=== PATIENT | female | born 1945 | race Caucasian/White ===

== ENCOUNTER → 2018-10-28 11:00 | Outpatient (CLI) | payer MEDICARE, MEDICAID, SELFPAY ==
--- NOTE | 2018-10-28 11:01 | RAD_ITS ---
STUDY: X-RAY - PELVIS AND LEFT HIP REASON FOR EXAM: Female, 73 years old. Increasing left hip and lower back pain. TECHNIQUE: 3 views of the pelvis and hip. COMPARISON: FINDINGS: _The patient is status post right hip arthroplasty in anatomic alignment. There is no plain film evidence of hardware failure or loosening. There is very severe left hip osteoarthritis. [id number] is identified. There is no acute osseous abnormality. . RAD/HIP, UNI W/ Pelvis 2-3 Views IMPRESSION: Right hip arthroplasty in anatomic alignment without plain film evidence of hardware failure or loosening. Severe left hip osteoarthritis. No plain film evidence of acute osseous abnormality. Incidental note of the moderate to severe lumbar spine degenerative changes involving the visualized inferior lumbar spine Electronically Signed: Feliberto Key MD at 15:50 EDT , Service support ,
== END ==
PROVIDERS: Family Provider Internal Medicine; PCP Internal Medicine; Referring Provider Orthopaedic Surgery; Visit Provider Orthopaedic Surgery
DX: M25.552 Pain in left hip (principal)
CPT/HCPCS: 73502

== ENCOUNTER 2018-11-27 11:30 | Outpatient (RCR) | payer MEDICARE, MEDICAID, SELFPAY ==
--- NOTE | 2018-11-01 15:06 | HP.PTEVAL_ITS ---
Patient's Visit Information VANNA MCFADDEN is a 73 year old F referred to Physical Therapy by Alcides Gayle DO with a diagnosis of LEFT HIP OSTEOARTHRITIS. Date of Evaluation: 11/01/18 Physical Therapist: Nathan Guzman, PT, Cert MDT, OCS - Visit Plan Frequency: 2x /Week Duration: 4 Weeks Plan: PATIENT PLANS TO HAVE THR LEFT IN JANUARY. AQUATIC PT FOR ROM/STRENGTHENING HIP ,GAIT - Subjective Findings: This 73 y/o female presnets to physical therapy with left hip osteoarthritis. Patient has left hip pain for 3 years progressivly became worse. Patient has been seeing pain management for injections in hip and back. Pain became progressively worse with activity and limits with activity and needs FWW. Pain located in groin and lateral hip. Pain affects sleeping . Patient has difficulty with staips one step ,limited walking/standing couple minutes . Symptoms affect QOL and function. Patient seen Dr Hickman recommended left THR will been January. Patient had x-rays showed severe OA. VOACTION: retired. SOCAIL: - Pain Left Hip Pain Intensity (Out of 10): 9 Pain Intensity Range: 10 - Objective POSTURE: mild foward posture. NEURO: intact. GAIT: ambulates with antalgic gait poor stance time with fww. BALANCE: fair+. AROM: supine knee flexion 0-95 degrees ,hip flexion 70 degrees ,hip abd 15 degrees. STAIRS: one step at a time with rail - Special Tests L Hip Scour: Positive - Goals Goal 1:: Patient to be Independant with Aquatic PT Goal Time Frame: 4-6 Weeks Goal 2:: Patient to decrease pain by 30% to improve function. Goal Time Frame: 4-6 Weeks Goal 3:: Patient to improve AROM hip by 5-10 degrees to improve gait Goal Time Frame: 4-6 Weeks Goal 4:: Patient to increase strength by 1/2 grade to improve function Goal Time Frame: 4-6 Weeks Goal 5:: Patint to be seen for PT for gait with less antalgic gait by 30% Goal Time Frame: 4-6 Weeks - Rehabilitation Potential Physical Therapy Diagnosis: This patient has severe OA left hip with pain,poor ROM ,strength,imapirs ability to walk needs FWW. Rehabilitation Potential: Good - Anticipated Interventions Patient/Client Instruction: Educate patient on: Condition For the Purpose of:: To decrease pain, To increase ROM, To improve muscle performance and motor function, To increase tolerance to activity/c ondition/position, To improve ability of physical actions for home/community/work/leisure, To improve gait and locomotor functions, To improve health of tissue, To decrease soft tissue restriction, To increase flexibility/ROM Therapeutic Exercise to Include: Power training, In an aquatic setting, Passive ROM, Active ROM Comment: BLE For the Purpose of:: To decrease pain, To increase ROM, To improve muscle performance and motor function, To increase tolerance to activity/condition/position, To improve ability of physical actions for home/community/work/leisure, To improve health of tissue, To decrease soft tissue restriction, To increase flexibility/ROM, To improve balance, To improve ability to perform tasks related to life management Thank you for the opportunity to evaluate your patient. For Medicare and Medicare HMO plans, please review the plan of care and approve it. It will need to be FAXED BACK to us at [phone] for Medicare purposes. For Medicare only, by signing this I certify the plan of care. Please let me know if there are questions or concerns regarding this plan of care. Physician Signature: Date:
--- NOTE | 2018-11-27 11:52 | HP.PTDCSUM ---
HP - PT D/C Summary It has been my pleasure to treat VANNA MCFADDEN under orders from Alcides Gayle DO, for the diagnosis of LEFT HIP OSTEOARTHRITIS for a total of 7 visit(s). Discharge Date: 11/27/18 Please see the following information for a summary of their discharge status. - Subjective Subjective: Water exercises made my back worse. Plan for for hip surgery left hip January 2019 - Pain Left Hip Pain Intensity (Out of 10): 2 Lumbar Spine Pain Intensity (Out of 10): 8 - Overall Improvement % Improvement: 25 - Objective Objective/Function: POSTURE: mild foward posture. GAIT: antalgic gait with fww decrease stance left side. MMT: quads 3+/5,hip flexion 3+/5,abd 3-/5.hams 4-/5. BALANCE: fair + with fww - Goals Goal 1:: Patient to be Independant with Aquatic PT Goal Progress: Progressing Goal 2:: Patient to decrease pain by 30% to improve function. Goal Progress: Progressing Goal 3:: Patient to improve AROM hip by 5-10 degrees to improve gait Goal Progress: Progressing Goal 4:: Patient to increase strength by 1/2 grade to improve function Goal Progress: Progressing Goal 5:: Patint to be seen for PT for gait with less antalgic gait by 30% Goal Progress: Progressing - Plan Plan: d/c waiing for THR - D/C Information Discharge Comments: PLAN MATT SURGERY THR If there are questions or concerns regarding this patient's physical therapy, please feel free to call me at [phone]. Thank you for the referral of this patient. Sincerely, Nathan Guzman, PT, Cert MDT, OCS
== END 2018-11-27 19:00 | disposition home or self-care (01) ==
LOC: PT 11:30
PROVIDERS: Family Provider Internal Medicine; PCP Internal Medicine; Referring Provider Orthopaedic Surgery; Visit Provider Orthopaedic Surgery
DX: M16.12 Unilateral primary osteoarthritis, left hip (principal)
CPT/HCPCS: 97113; 97162; 97530

== ENCOUNTER → 2019-01-06 13:01 | Outpatient (CLI) | payer MEDICARE, MEDICAID, SELFPAY ==
--- NOTE | 2019-01-06 13:04 | RAD_ITS ---
STUDY: X-RAY - PELVIS AND LEFT HIP REASON FOR EXAM: Female, 73 years old. Chronic pain. TECHNIQUE: 3 views of the pelvis and hip. COMPARISON: AP pelvis and 2 additional views of the left hip October 28, 2018. FINDINGS: There is a non-specific bowel gas pattern. There are stable calcified phleboliths in the pelvic soft tissues. Degenerative changes again seen in the visualized lower lumbar spine. Normal bilateral iliac wings, sacroiliac joints and visualized sacrum. Normal bilateral superior and inferior pubic rami. Normal pubic symphysis. Normal bilateral ischial tuberosities. Prior right total hip arthroplasty with an indwelling metal bipolar prosthesis again noted. There are stable severe osteoarthritic changes of the femoral head with marginal osteophyte formation. Rounded lucencies in the superior left femoral head suggests sites of subarticular cystic degenerative change. There is stable osteoarthritic spur formation of the acetabular rim. There is stable severe articular joint space narrowing of the hip. There is no demonstrated acute fracture. RAD/Hip 1 view with Pelvis IMPRESSION: 1. Stable severe osteoarthritic degenerative changes of the left hip. 2. Prior right total hip arthroplasty. 3. Stable degenerative changes in the lower lumbar spine. Electronically Signed: Evangelista Mcknight MD at 13:36 EDT , Service support ,
== END ==
PROVIDERS: Family Provider Internal Medicine; PCP Internal Medicine; Referring Provider Orthopaedic Surgery; Visit Provider Orthopaedic Surgery
DX: M16.12 Unilateral primary osteoarthritis, left hip (principal)
CPT/HCPCS: 73501

== ENCOUNTER 2019-01-22 08:01 | Inpatient (IN) | payer MEDICARE, MEDICAID, SELFPAY ==
--- NOTE | 2019-01-06 08:41 | HP_ITS ---
Intake Vital Signs 01/06/19 Body Mass Index (BMI) 27.4 Intake Visit Reasons: LEFT HIP Accompanied by: Is patient in pain?: Yes Allergies No Known Allergies Allergy (Verified 10/28/18 11:19) Medications atenolol 25 mg tablet PO 90 Days #90 tab 10/28/18 [History Confirmed 01/06/19] celecoxib 200 mg capsule PO 30 Days #30 cap 10/28/18 [History Confirmed 10/28/18] gabapentin 100 mg capsule PO 90 Days #450 cap 10/28/18 [History Confirmed 10/28/18] hydrocodone 5 mg-acetaminophen 325 mg tablet PO 15 Days #30 tab 10/28/18 [History Confirmed 01/06/19] losartan 100 mg-hydrochlorothiazide 25 mg tablet PO 90 Days #90 tab 10/28/18 [History Confirmed 01/06/19] omeprazole 20 mg capsule,delayed release PO 90 Days #180 cap 10/28/18 [History Confirmed 01/06/19] atorvastatin 20 mg tablet PO #90 tab 01/06/19 [History Confirmed 01/06/19] gabapentin 300 mg capsule PO #60 cap 01/06/19 [History Confirmed 01/06/19] HPI LEFT HIP: Surgical H&P: Yes Details: Parts of this documentation were recorded by a scribe, this documentation accurately reflects the service provided and the decisions made by me, Alcides Gayle, 01/06/19 0813. VANNA MCFADDEN is a 73 year old F here today for left hip pain and discuss surgery. She is ambulating with an antalgic gait and using a walker. She did just have left side nerve ablation with limited results so far of radicular pain. Ortho Exam Left Hip HIP: good ankle and knee rom, no calf Left Hip Skin/Wound: No Ecchymosis Hip: Absent eccymosis internal rotation @90 degree flexion: 2 (significant pain) external rotation @90 degree extension: 30 (severe pain) HIP: catching in groin with rom, Assessment & Plan Problems 1. Primary osteoarthritis of left hip M16.12 Plan X-rays were reviewed. There is severe OA noted in the left hip and DJD of the lumbar spine and that though she should get pain relief with RAJWINDER but there may be residual referred pain from her low back issues. Reviewed procedure and material with a model as well. Will control her pain medications for postoperative period. Risks, benefits and alternatives of surgery reviewed including but not limited to bleeding, infection, nerve, artery and/or tissue damage, fracture, VTE, leg length discrepancy, dislocation, need for hip precautions, continued pain and expected post-operative course. Follow up two weeks post op or sooner if pain, swelling, numbness or associated symptoms, or concerns develop. All questions answered. Patient in agreement of plan. Orders Orders: Hip 1 view with Pelvis Today M16.12 Coding Level of Care Code Off vis,est,level 3 Diagnoses Primary osteoarthritis of left hip M16.12 ??Osteoarthritis type: primary 01/06/19 1347 <Electronically signed by Alcides guzman DO> Date _ Alcides Gayle DO
[2019-01-06 13:45] VITALS: BMI 27.4
[2019-01-17 13:14] VITALS: BP 102/61; PULSE 82; RESP 17; TEMP 36.9; O2SAT 97; BMI 27.6
--- NOTE | 2019-01-17 13:42 | SDCEKG_ITS ---
Test Reason : Blood Pressure : / mmHG Vent. Rate : 080 BPM Atrial Rate : 080 BPM P-R Int : 172 ms QRS Dur : 086 ms QT Int : 366 ms P-R-T Axes : 018 030 036 degrees QTc Int : 422 ms Normal sinus rhythm Normal ECG Confirmed by RAE LINDQUIST, EFRAIN ([id number]), material expeditor ADELINE AYERS ([id number]) on 01/21/2019 2:13:37 PM Referred By: Alcides Gayle Confirmed By:EFRAIN MCBRIDE MD
[2019-01-17 14:27] LABS: Hematocrit 42.8 % (37-47); Hemoglobin 14.7 g/dl (12.0-15.0); Mean Corp Hgb Conc 34.3 g/gl (32-36); Mean Corpuscular Hgb 28.9 pg (27.0-32.0); Mean Corpuscular Volume 84.1 fL (81-99); Mean Platelet Vol. 12.6 fl (6.2-12.0); Platelet Count 147 K/mm3 (150-450); RBC Distribution Width CV 13.3 % (11.6-14.6); RBC Distribution Width SD 40.5 fl (35.1-43.9); Red Blood Count 5.09 M/mm3 (4.2-5.4); White Blood Count 9.9 K/mm3 (4.4-11.0)
[2019-01-17 14:30] LABS: Anion Gap 5 (5-15); BUN 20 mg/dL (7-18); BUN/Creat Ratio 21.7 RATIO (10-20); Chloride 100 mmol/L (98-107); Creatinine, Serum 0.92 mg/dL (0.55-1.02); EST Glomerular Filtration Rate 64 mL/min (>60); Est Glom Filt Rate - Afr Amer 77 mL/min (>60); Estimated Creatinine Clearance 47.73 ml/min; Glucose 156 mg/dL (74-106); Potassium 3.7 mmol/L (3.5-5.1); Scan Indicated on CBC? Y/N NO; Sodium Level 134 mmol/L (136-145)
[2019-01-21] VITALS (13 sets, daily range): BP systolic 95–129; BP diastolic 63–90; PULSE 55–72; RESP 16–18; TEMP 35.9–36.8; O2SAT 93–100; BMI 27.6
[2019-01-21] MEDS: Acetaminophen 500 MG Tablet 1000 MG PO ×2 (09:54→23:28)
[2019-01-21] MEDS: Celecoxib 200 MG Capsule 400 MG PO (09:54)
[2019-01-21] MEDS: Gabapentin 600 MG Tablet PO (09:55)
[2019-01-21] MEDS: Scopolamine 1mg/72hr Patch 1 PATCH TRANSDERM. (09:56)
[2019-01-21] MEDS: Magnesium Sulfate 4gm/100mL 4 GM/100 ML IV.SOLN. IV (09:59)
[2019-01-21] MEDS: Lactated Ringers 1,000 ML 100 ML IV ×2 (09:59→18:27)
[2019-01-21] MEDS: oxyCODONE HCl Cr 10 MG Tablet PO (10:13)
[2019-01-21 10:16] LABS: Bedside Glucose 103 mg/dL (70-110)
[2019-01-21] MEDS: Cefazolin 2 GM in 0.9% Normal Saline 100 ML IV ×2 (11:40→18:27)
[2019-01-21] MEDS: Bupiv/Epi 0.5% Mpf 30 ML Vial (13:35)
--- NOTE | 2019-01-21 14:22 | RAD_ITS ---
STUDY: X-RAY - PELVIS AND LEFT HIP REASON FOR EXAM: Female, 73 years old. Left Total hip TECHNIQUE: 2 views of the pelvis and hip. COMPARISON: None. FINDINGS: There is a non-specific bowel gas pattern. There are atherosclerotic vascular calcifications of the pelvic arteries. Normal bilateral iliac wings, sacroiliac joints and visualized sacrum. Normal bilateral superior and inferior pubic rami. Normal pubic symphysis. Normal bilateral ischial tuberosities. There is a right hip arthroplasty demonstrated in anatomic position and alignment. There is a left-sided hip arthroplasty secured with an acetabular screw. There are overlying skin sinan and subcutaneous gas expected with recent surgery. RAD/Hip Min 2 Views (Portable) IMPRESSION: Status post new left hip arthroplasty in anatomic position and alignment with postoperative change. Right hip arthroplasty. Electronically Signed: Kacey Alba MD at 14:57 EDT Tel , Service support ,
--- NOTE | 2019-01-21 14:55 | PCM.OPRPT ---
Report of Operation Date of Procedure: 01/21/19 Description of Surgical Findings:: Preoperative diagnosis: DJD [Left] hip Postoperative diagnosis: Same Procedure: [Left] total hip arthroplasty Implants: Cadillac Accolade II stem size 5 [132] degree neck angle [0] neck length 56 mm cup with [40]mm cancellous screw [36]mm [ceramic] head Anesthesia:[Spinal] EBL: 300 cc Complications: None Condition: Stable to PACU Indication for procedure: his deshaun casillas is a 73-year-old female who has severe hip arthritis with leg length shortening had long-standing arthrosis of the hip who has failed conservative treatment and wished to undergo total hip arthroplasty. We did discuss operative versus nonoperative intervention including risks of bleeding, infection , nerve artery tissue damage, need for further surgery, fracture, leg length discrepancy dislocation blood clot and need for postoperative physical therapy and postoperative expectations. An informed consent was signed. Procedure: Patient was met in the preoperative holding area once again the operative extremity was identified by both patient and physician and was marked. Patient was met by anesthesia [and a spinal was placed]. [A Ratliff catheter was placed ]patient was then positioned in the lateral decubitus position on a well-padded pegboard with an axillary roll. All bony prominences were checked and padded. The patient was prepped and draped in the usual sterile fashion. A timeout was called to ensure the proper patient procedure and extremity were being contemplated. Anatomic landmarks were palpated and marked for a standard posterior lateral approach. A timeout was called to ensure the proper patient procedure and extremity were being contemplated. A 10 blade scalpel was used to make a posterior incision through the skin and subcutaneous tissue. In retractors were used and electrocautery was used to maintain meticulous hemostasis and dissect full-thickness flaps until the gluteal fascia was reached. The gluteal fascia was incised in line with the gluteal fibers. The bursal tissue was then freed from the underside and a Charnley retractor was placed. The fatpad was elevated off of the external rotators with electrocautery and the external rotators were dissected off of the greater trochanter including the piriformis and were tagged with #1 Ethibond for later repair. The joint capsule opened with posterior trapdoor technique. The hip was surgically dislocated. Hohmann was placed around the lesser trochanter. A neck cutting guide was used to crissy the neck with a Bovie and an oscillating saw was used complete the femoral neck cut. The femoral head was then removed and sized. We then turned our attention to the acetabulum. A Bovie was used to make a perforation in the anterior joint capsule and a pointed Hohmann was placed this was repeated in the 6 o'clock position in a wide point at home and was placed there. With a long handled knife the labral and pulmonary tissue were removed. We then began sequential reaming until the appropriate size was achieved. We then fit the acetabular shell in place with good ability and proceeded to place a posterior superior screw by drilling first measuring and inserting the screw. We then inserted a trial liner. And turned our attention back to the femur at this point a femoral elevator was used. As well as a pointed wide Hohmann around the lesser trochanter and a Hohmann to help retract the gluteus medius. A box chisel was used to remove excess lateral neck followed by a canal finder and a lateralizing reamer. This was followed by sequential broaches attention was made of the version within the canal. Once the final broach was seated we then trialed reduced the hip it was determined that a [132] degree neck angle with a [0] offset was the appropriate size. We then checked ability with shuck testing as well as flexion and terminal rotation then proceeded with hip extension and checked leg lengths at the knees and heels. At this point trials were removed. A posterior lipped liner was inserted to the cup. The femoral stem was inserted. We re-trialed and then proceeded to impact the femoral head onto the Andrey taper. We then surgically reduce the hip check stability again and leg lengths and were satisfied. Betadine rinse was allowed to sit for 5 minutes while everyone changed their gloves. Thorough irrigation was performed. Followed by closure of the external rotators with #2 FiberWire followed by closure of gluteal fascia with #1 Ethibond. 0 Vicryl fat stitches and 2-0 Vicryl subcutaneous stitches and sinan in the skin. Dressing was applied in the form of Xeroform 4 x 4 ABD Ioband and an abduction pillow was placed. Patient tolerated the procedure well there was no intraoperative complications all counts were correct and the patient was brought back to the PACU in stable condition
[2019-01-21] MEDS: oxyCODONE 5 MG Tablet PO (18:26)
[2019-01-21] MEDS: Atorvastatin Calcium 20 MG Tablet PO (22:21)
[2019-01-21] MEDS: Gabapentin 300 MG Capsule PO (22:21)
[2019-01-21] MEDS: APIXABAN 2.5 MG TABLET PO (22:21)
[2019-01-21] MEDS: Senna/Docusate Sodium 1 Tablet 2 TABLET PO (22:21)
[2019-01-21] MEDS: 0.9% NaCl Peripheral Flush Adult/Peds IV (22:28)
[2019-01-21] MEDS: Ketorolac 15 MG/ML Vial IV (22:28)
[2019-01-22] VITALS (11 sets, daily range): BP systolic 95–127; BP diastolic 49–63; PULSE 65–94; RESP 16–18; TEMP 36.6–37.6; O2SAT 88–100
[2019-01-22] MEDS: oxyCODONE 5 MG Tablet PO ×5 (00:50→23:35)
[2019-01-22] MEDS: Cefazolin 2 GM in 0.9% Normal Saline 100 ML IV (03:28)
[2019-01-22] MEDS: Lactated Ringers 1,000 ML 100 ML IV (03:31)
[2019-01-22 05:31] LABS: Hematocrit 30.5 % (37-47); Hemoglobin 10.4 g/dL (12.0-15.0); Mean Corp Hgb Conc 34.1 g/dL (32-36); Mean Corpuscular Hgb 29.7 pg (27.0-32.0); Mean Corpuscular Volume 87.1 fL (81-99); Mean Platelet Vol. 12.1 fl (6.2-12.0); Platelet Count 112 K/mm3 (150-450); RBC Distribution Width CV 13.2 % (11.6-14.6); RBC Distribution Width SD 42.3 fl (35.1-43.9); White Blood Count 7.6 K/mm3 (4.4-11.0)
[2019-01-22 05:54] LABS: Anion Gap 8 (5-15); BUN 13 mg/dL (7-18); BUN/Creat Ratio 14.2 RATIO (10-20); Calcium,Total 7.6 mg/dL (8.5-10.1); Chloride 98 mmol/L (98-107); Creatinine, Serum 0.91 mg/dL (0.55-1.02); EST Glomerular Filtration Rate 64 mL/min (>60); Est Glom Filt Rate - Afr Amer 78 mL/min (>60); Estimated Creatinine Clearance 48.25 ml/min; Glucose 94 mg/dL (74-106); Potassium 3.8 mmol/L (3.5-5.1); Sodium Level 132 mmol/L (136-145)
[2019-01-22] MEDS: 0.9% NaCl Peripheral Flush Adult/Peds IV (06:33)
[2019-01-22] MEDS: Acetaminophen 500 MG Tablet 1000 MG PO ×3 (06:52→22:02)
--- NOTE | 2019-01-22 07:26 | PCM.PN.ORT ---
Subjective: Complain of pain but not out of control the left hip fevers chills nausea vomiting shortness of breath chest pain - Physical Exam General: Alert, Oriented x3, Cooperative, No apparent distress Extremities: - - Tip dressing clean dry and intact compartment soft neurovascular intact HL tibialis anterior gastrocsoleus intact sensation light touch palpable pedal pulses Vital Signs Temp Pulse Resp BP Pulse Ox 98 F 72 18 107/62 93 01/22/19 03:27 01/22/19 03:27 01/22/19 03:27 01/22/19 03:27 01/22/19 05:09 Oxygen Flow Rate (L/min) 1 Oxygen Delivery Method Nasal Cannula Weight: 161 lb 2.526 oz Body Mass Index (BMI) 27.6 Intake and Output for Last 24 Hours 01/20/19 01/21/19 01/22/19 23:59 23:59 23:59 Intake Total 2843 / 3980 2170 / 2170 Output Total 290 / 515 725 / 725 Balance 2553 / 3465 1445 / 1445 Laboratory Tests Past 24 Hrs 01/22/19 01/22/19 05:08 05:08 WBC 7.6 RBC 3.50 L Hgb 10.4 L Hct 30.5 L MCV 87.1 MCH 29.7 MCHC 34.1 RDW Std Deviation 42.3 RDW Coeff of Bela 13.2 Plt Count 112 L MPV 12.1 H Sodium 132 L Potassium 3.8 Chloride 98 Carbon Dioxide 26.0 Anion Gap 8 BUN 13 Creatinine 0.91 Estim Creat Clear Calc 48.25 Est GFR (MDRD) Af Amer 78 Est GFR (MDRD) Non-Af 64 BUN/Creatinine Ratio 14.2 Glucose 94 Calcium 7.6 L POC Glucose 01/21/19 09:36 POC Glucose 103 Medical Necessity - Tobacco Use Smoking Status: Current every day smoker Tobacco Use: Cigarettes Assessment/Plan POD #1 left total hip arthroplasty Request 2.5 mg twice daily Seem to be changed by nursing tomorrow morning and daily cleaned with Betadine Shower postop day #3 The planning tomorrow with home health care
[2019-01-22] MEDS: hydroCHLOROthiazide 12.5mg 12.5 MG PO (08:08)
[2019-01-22] MEDS: BENZOCAINE/MENTHOL 1 LOZENGE MUCOUS MEM (08:08)
[2019-01-22] MEDS: Senna/Docusate Sodium 1 Tablet 2 TABLET PO ×2 (08:08→22:02)
[2019-01-22] MEDS: APIXABAN 2.5 MG TABLET PO ×2 (08:08→22:03)
[2019-01-22] MEDS: Pantoprazole Sodium 20 MG Tablet PO (08:08)
[2019-01-22] MEDS: Gabapentin 300 MG Capsule PO ×2 (08:08→22:03)
--- NOTE | 2019-01-22 10:45 | CASEMGMT ---
SILVIA CUNNINGHAM Face to Face with patient for initial transition planning/care coordination assessment. RN CM introduced self and role at [facility]. Patient lying in bed, alert and oriented. Patient willing to participate in assessment and is able to answer all questions appropriately. Care providers, pharmacy, and demographics verified. Patient wishes to discharge home with HHC for therapy, patient prefers [facility]. Patient states she has no further needs or concerns at this time. CM to follow for discharge planning needs that may arise. PCP: Alonso Specialists: Jerardo pain specialist [facility] Prescription Benefit: yes Living Will/HPOA: None, declined information LNOK: , children Living Arrangements: Patient lives with in 2 story house with 12 steps and railing to enter the home. Patient independent prior to surgery. Transportation: Family DME/HHC: Patietn states she has walker, raised toilet, and shower chair at home. Patient prefers HHC for therapy, then transition to outpatient therapy. Patient prefers [facility]. Disposition Plan: Patient to discharge home with HHC, family support, and follow-up plans in place. Lucinda BOWSER, RN, CM
--- NOTE | 2019-01-22 14:20 | CASEMGMT ---
SILVIA CUNNINGHAM sent referral to [facility] for therapy. [facility] is able to accept the patient. SILVIA CUNNINGHAM will continue to follow this patient and plan for a safe discharge.
[2019-01-22] MEDS: Atorvastatin Calcium 20 MG Tablet PO (22:03)
[2019-01-23 01:45] VITALS: BP 117/69; PULSE 77; RESP 16; TEMP 37; O2SAT 96
[2019-01-23] MEDS: Acetaminophen 500 MG Tablet 1000 MG PO (05:08)
[2019-01-23 06:16] LABS: Hematocrit 36.4 % (37-47); Hemoglobin 12.2 g/dL (12.0-15.0); Mean Corp Hgb Conc 33.5 g/dL (32-36); Mean Corpuscular Hgb 28.8 pg (27.0-32.0); Mean Corpuscular Volume 86.1 fL (81-99); Mean Platelet Vol. 13.5 fl (6.2-12.0); POSITIVE COUNT YES; Platelet Count 156 K/mm3 (150-450); RBC Distribution Width CV 12.9 % (11.6-14.6); Red Blood Count 4.23 M/mm3 (4.2-5.4); White Blood Count 12.3 K/mm3 (4.4-11.0)
[2019-01-23 06:25] LABS: Scan Indicated on CBC? Y/N YES- FLAGS NOTED
[2019-01-23 06:56] LABS: POSITIVE DIFFERENTIAL NO; POSITIVE MORPHOLOGY NO
[2019-01-23 06:57] LABS: Differential Comment SCANNED
[2019-01-23 07:45] VITALS: BP 103/59; PULSE 88; RESP 18; TEMP 36.9; O2SAT 93
--- NOTE | 2019-01-23 08:05 | DCINST_ITS ---
Discharge Diet: No Restrictions Weight Bearing Status: Weight bearing as tolerated Call your doctor if you observe: Shortness of breath, Chest pain Suture Line Care: Avoid Pulling/Pushing Additional Instructions: Begin daily showering warm water antibacterial soap postop day #3 and then daily. Change dressing daily until no drainage for 2 consecutive days then may leave open to air. Follow hip precautions as reviewed by hospital physical therapist. Call with any concerns Allergies/Adverse Reactions: Allergies No Known Allergies Allergy (Verified 01/21/19 09:24) Medications to take at Discharge atenolol 25 mg tablet 25 mg PO DAILY 90 Days #90 tab 10/28/18 celecoxib 200 mg capsule 200 mg PO DINNER 30 Days #30 cap 10/28/18 hydrocodone 5 mg-acetaminophen 325 mg tablet 1 tab PO BID PRN 15 Days #30 tab 10/28/18 omeprazole 20 mg capsule,delayed release 20 mg PO DAILY 90 Days #180 cap 10/28/18 atorvastatin 20 mg tablet 20 mg PO DAILY #90 tab 01/06/19 gabapentin 300 mg capsule 300 mg PO BID #60 cap 01/06/19 Calcium Carbonate/Vitamin D3 [Calcium 600-Vit D3 200 Tablet] 1 ea PO DAILY 01/17/19 Hydrochlorothiazide [Hctz] 12.5 mg PO DAILY 01/17/19 Losartan Potassium [Cozaar] 100 mg PO DAILY 01/17/19 Primary Care Physician: Melanie Gupta MD [Primary Care Provider] - Test Results: Test results from this visit will be discussed in further detail at your follow- up appointment, if applicable. Please Follow Up With: Alcides Gayle DO When: 2wk
--- NOTE | 2019-01-23 08:11 | PCM.DC.SUM ---
Hospital Course and Treatment Summary of Care Provided: The patient is a 73 year old F this is a 73-year-old female patient with long-standing history of severe left hip DJD who is failed conservative treatment. She underwent left total hip arthroplasty day of admission. She did receive pre-and postoperative antibiotics which were discontinued within 23 hours postoperatively. She did receive spinal anesthesia and postoperatively her pain was controlled with both IV and p.o. pain medication. She did receive 2 g of tranexamic acid. Her hemoglobin and hematocrit were monitored postoperatively as well as her vital signs and she did not require any blood transfusion she did have a juarez catheter placed which was removed in the morning of POD #1 . Dressing was changed on the morning of postop day #2 without any concerning signs. He did have a superficial ulceration on her back which was cleaned and dressed for her she will continue to clean this daily with her showers. she was started on Eliquis 2.5 mg twice daily postop day #1 for which she will continue for 3 weeks post hospital discharge . She was seen by physical therapy was ambulating the halls well she will be discharged home with home health residential physical therapy will follow-up in the office in 2 weeks. No intrahospital complications. - Physical Exam General: Alert, Oriented x3, Cooperative Extremities: - - Incision looks good no signs of infection compartment soft neurovascular intact there is a small 3 cm superficial ulceration on her backside which was cleaned and redressed Vital Signs Temp Pulse Resp BP Pulse Ox 98.6 F 77 16 117/69 96 01/23/19 01:45 01/23/19 01:45 01/23/19 01:45 01/23/19 01:45 01/23/19 01:45 Oxygen Flow Rate (L/min) 2 Oxygen Delivery Method Nasal Cannula Weight: 161 lb 2.526 oz Body Mass Index (BMI) 27.6 Intake and Output for Last 24 Hours 01/21/19 01/22/19 01/23/19 23:59 23:59 23:59 Intake Total 2843 / 3980 4930 / 4930 200 / 200 Output Total 290 / 515 2325 / 2325 1400 / 1400 Balance 2553 / 3465 2605 / 2605 -1200 / -1200 Laboratory Tests Past 24 Hrs 01/23/19 05:18 WBC 12.3 H RBC 4.23 Hgb 12.2 Hct 36.4 L MCV 86.1 MCH 28.8 MCHC 33.5 RDW Std Deviation 40.0 RDW Coeff of Bela 12.9 Plt Count 156 MPV 13.5 H Differential Comment SCANNED Discharge Diet: No Restrictions Weight Bearing Status: Weight bearing as tolerated Call your doctor if you observe: Shortness of breath, Chest pain Suture Line Care: Avoid Pulling/Pushing Home Medications: Medications to take at Discharge atenolol 25 mg tablet 25 mg PO DAILY 90 Days #90 tab 10/28/18 celecoxib 200 mg capsule 200 mg PO DINNER 30 Days #30 cap 10/28/18 omeprazole 20 mg capsule,delayed release 20 mg PO DAILY 90 Days #180 cap 10/28/18 atorvastatin 20 mg tablet 20 mg PO DAILY #90 tab 01/06/19 gabapentin 300 mg capsule 300 mg PO BID #60 cap 01/06/19 Calcium Carbonate/Vitamin D3 [Calcium 600-Vit D3 200 Tablet] 1 ea PO DAILY 01/17/19 Hydrochlorothiazide [Hctz] 12.5 mg PO DAILY 01/17/19 Losartan Potassium [Cozaar] 100 mg PO DAILY 01/17/19 Acetaminophen [Tylenol] 1,000 mg PO Q8 #100 tab 01/23/19 Apixaban [Eliquis] 2.5 mg PO BID 21 Days #42 tab 01/23/19 Oxycodone [Oxyir] 5 - 10 mg PO Q4H PRN PRN 7 Days #60 tablet 01/23/19 Following Prescrptions Were Given to Patient: Apixaban [Eliquis] 2.5 mg PO BID 21 Days #42 tab [facility]: [id number] Oxycodone [Oxyir] 5 - 10 mg PO Q4H PRN PRN 7 Days #60 tablet PRN Reason: Mod-Severe Pain (4-04/17) Transmission Status: [id number] Acetaminophen [Tylenol] 1,000 mg PO Q8 #100 tab Transmission Status: [id number] Primary Care Physician: Melanie Gupta MD [Primary Care Provider] - Please Follow Up With: Alcides Gayle DO When: 2wk Additional Instructions: Begin daily showering warm water antibacterial soap postop day #3 and then daily. Change dressing daily until no drainage for 2 consecutive days then may leave open to air. Follow hip precautions as reviewed by hospital physical therapist. Call with any concerns Medical Necessity - Tobacco Use Smoking Status: Current every day smoker Tobacco Use: Cigarettes Meaningful Use Info Meaningful Use Diagnoses (Choose all that apply): None applicable
[2019-01-23] MEDS: Gabapentin 300 MG Capsule PO (08:15)
[2019-01-23] MEDS: APIXABAN 2.5 MG TABLET PO (08:15)
[2019-01-23] MEDS: Senna/Docusate Sodium 1 Tablet 2 TABLET PO (08:15)
[2019-01-23] MEDS: hydroCHLOROthiazide 12.5mg 12.5 MG PO (08:15)
[2019-01-23] MEDS: Pantoprazole Sodium 20 MG Tablet PO (08:18)
[2019-01-23] MEDS: oxyCODONE 5 MG Tablet PO (09:29)
--- NOTE | 2019-01-23 12:30 | CASEMGMT ---
[place] NOTE: Call placed to [facility] and they were made aware pt has been discharged home today. They stated their fax machine is not currently working and gave this RN OCTAVIO a different number to fax this information to than what was originally provided. Discharge summary and instructions, and [facility] order for PT/OT eval and treat faxed to [facility] @ Deanna BOWSER RN, CM
== END 2019-01-23 10:38 | disposition home or self-care (01) | DRG 470 ==
LOC: SDC 08:23
PROVIDERS: Anesthesiology; Admitting Provider Orthopaedic Surgery; Family Provider Internal Medicine; PCP Internal Medicine; Referring Provider Orthopaedic Surgery; Visit Provider Orthopaedic Surgery
PROC: 0SRB0JZ Replacement of Left Hip Joint with Synthetic Substitute, Open Approach (ICD-10-PCS; CPT 27130; principal; 2019-01-21 10:55)
DX: M16.12 Unilateral primary osteoarthritis, left hip (principal)
CPT/HCPCS: 36415; 73502; 80048; 82962; 85027; 87081; 93005; 97110; 97161; 97166; 97530; C1713; C1776; J7120; A4216; J2405

== ENCOUNTER → 2019-03-03 13:43 | Outpatient (CLI) | payer MEDICARE, MEDICAID, SELFPAY ==
[2019-03-03 08:12] VITALS: BMI 27.6
--- NOTE | 2019-03-03 13:44 | RAD_ITS ---
STUDY: X-RAY - PELVIS AND LEFT HIP REASON FOR EXAM: Female, 73 years old. Postop TECHNIQUE: 3 views of the pelvis and hip. COMPARISON: January 21, 2019 FINDINGS: There is a non-specific bowel gas pattern. Normal visualized soft tissue structures. Normal bilateral iliac wings, sacroiliac joints and visualized sacrum. Normal bilateral superior and inferior pubic rami. Normal pubic symphysis. Normal bilateral ischial tuberosities. Bilateral hip prostheses are noted in anatomic alignment and position. RAD/HIP, UNI W/ Pelvis 2-3 Views IMPRESSION: Stable appearance to bilateral hip prostheses Electronically Signed: Manuel Fofana MD at 17:27 EDT , Service support ,
== END ==
PROVIDERS: Family Provider Internal Medicine; PCP Internal Medicine; Referring Provider Orthopaedic Surgery; Visit Provider Orthopaedic Surgery
DX: Z96.642 Presence of left artificial hip joint (principal)
CPT/HCPCS: 73502

== ENCOUNTER → 2019-07-07 12:59 | Outpatient (CLI) | payer MEDICARE, MEDICAID, SELFPAY ==
[2019-07-07 12:55] VITALS: BMI 27.6
--- NOTE | 2019-07-07 13:00 | RAD_ITS ---
STUDY: X-RAY - PELVIS AND LEFT HIP REASON FOR EXAM: Female, 73 years old. RECENT PAIN. NO INJURY TECHNIQUE: 3 views of the pelvis and hip. COMPARISON: 03/03/2019 FINDINGS: There is a non-specific bowel gas pattern. Normal visualized soft tissue structures. Normal bilateral iliac wings, sacroiliac joints and visualized sacrum. Normal bilateral superior and inferior pubic rami. Normal pubic symphysis. Normal bilateral ischial tuberosities. Status post total hip arthroplasty. The prosthesis appears located. No ostial lysis to suggest loosening. RAD/HIP, UNI W/ Pelvis 2-3 Views IMPRESSION: Normal x-ray examination of the pelvis and hip after arthroplasty. Electronically Signed: Rupert Keith MD at 16:43 EST Tel , Service support ,
== END ==
PROVIDERS: Family Provider Internal Medicine; PCP Internal Medicine; Referring Provider Orthopaedic Surgery; Visit Provider Orthopaedic Surgery
DX: M25.552 Pain in left hip (principal)
CPT/HCPCS: 73502

== ENCOUNTER → 2019-07-07 13:19 | Outpatient (CLI) | payer MEDICARE, MEDICAID, SELFPAY ==
[2019-07-07 12:55] VITALS: BMI 27.6
--- NOTE | 2019-07-07 13:19 | RAD_ITS ---
STUDY: X-RAY - THORACIC SPINE REASON FOR EXAM: Female, 73 years old. LEFT HIP PAIN TECHNIQUE: 3 view(s) of the thoracic spine were obtained. COMPARISON: None. FINDINGS: Normal kyphosis of the thoracic spine. Mild shaped scoliosis with dextroscoliosis of the upper thoracic spine and levoscoliosis of the thoracolumbar spine. There is multilevel endplate spondylosis of the thoracic vertebrae. There is multilevel disc space narrowing of the thoracic spine. The soft tissue structures are unremarkable. RAD/Thoracic Spine 3 Views IMPRESSION: Mild S-shaped scoliosis with diffuse degenerative disc disease. Electronically Signed: Rupert Keith MD at 8:25 EST Tel , Service support ,
--- NOTE | 2019-07-07 13:19 | RAD_ITS ---
STUDY: X-RAY - LUMBOSACRAL SPINE REASON FOR EXAM: Female, 73 years old. LEFT HIP PAIN TECHNIQUE: 7 view(s) of the lumbosacral spine were obtained. COMPARISON: None FINDINGS: Normal lumbar lordosis. Mild dextroscoliosis centered at L2. There is normal alignment of the vertebrae. No subluxation on the flexion or extension views to suggest instability. There is multilevel endplate spondylosis of the lumbar vertebrae. There is multi-level degenerative disc disease with multi-level disc space narrowing. Normal bilateral sacral ala, sacroiliac joints, and visualized sacrum. Normal visualized soft tissue structures. RAD/L/S Spine Comp/w Bending Views IMPRESSION: Mild dextroscoliosis with diffuse degenerative disc disease. No instability. Electronically Signed: Rupert Keith MD at 8:27 EST Tel , Service support ,
== END ==
PROVIDERS: Family Provider Internal Medicine; PCP Internal Medicine; Referring Provider Orthopaedic Surgery; Visit Provider Orthopaedic Surgery
DX: M54.5 Low back pain (principal); M25.552 Pain in left hip
CPT/HCPCS: 72072; 72114; 73502

== ENCOUNTER 2021-05-23 13:47 | Inpatient (IN) | payer MEDICARE, MEDICAID, SELFPAY ==
[2021-05-23] VITALS (9 sets, daily range): BP systolic 113–145; BP diastolic 67–108; PULSE 73–84; RESP 16–24; TEMP 36.4–36.7; O2SAT 86–98; BMI 25.8
--- NOTE | 2021-05-23 14:08 | RAD_ITS ---
STUDY: X-RAY CHEST REASON FOR EXAM: Female, 75 years old. Cough TECHNIQUE: Single AP portable view of the chest. COMPARISON: None. FINDINGS: Calcified granulomas in the right lung apex. Mild increased markings at the lung bases suggestive of scarring. Focal calcification in the left lung apex. There is no demonstrated pleural abnormality. Normal size heart. Normal mediastinum and melinda. Normal visualized pulmonary arteries. There is atherosclerotic tortuosity of the aortic arch and descending thoracic aorta. There are diffuse degenerative changes of the visualized thoracic spine. There is degenerative osteoarthritis of the bilateral shoulders. There is no demonstrated abnormality of the visualized soft tissue structures of the upper abdomen. RAD/Chest 1 View (Portable) IMPRESSION: Chronic changes. No acute abnormality is seen. Electronically Signed: Harpal Hanson MD at 14:52 EST , Service support ,
--- NOTE | 2021-05-23 14:10 | EDS_ITS ---
HPI HPI - URI History of Present Illness Chief Complaint: Cough Narrative Narrative: 75-year-old female with history of hypertension, GERD, hyperlipidemia presenting with a cough. She states she is been coughing for 8 days. She does not have shortness of breath or chest pain. She is not had a fever or body aches. She states he does get chilled from time to time. Patient has no known exposure to COVID-19 or other illnesses. Patient was not vaccinated for COVID- 19. Patient states she has not been tested for COVID-19 yet and has not contracted this previously. ROS ROS ED Constitutional Constitutional ED: Reports chills; Denies fever(s) Eyes Eyes: Denies blurry vision or change in vision ENT ENT ED: Denies rhinorrhea or sore throat Cardiovascular Cardiovascular: Denies chest pain or palpitations Respiratory/Chest Respiratory/Chest: Reports cough; Denies dyspnea Gastrointestinal Gastrointestinal: Denies abdominal pain, nausea or vomiting Genitourinary Genitourinary ED: Denies dysuria or hematuria Musculoskeletal Musculoskeletal: Denies arthralgias or myalgias Integumentary Denies rash Neurologic Neurologic: Denies headache(s) or paresthesias Psychiatric Psychiatric: Denies anxiety or depression [facility] Medical History HTN (hypertension) Hyperlipemia Home Medications atenolol 25 mg tablet 25 mg PO DAILY 90 Days #90 tab 10/28/18 [History Last Taken 05/23/21] omeprazole 20 mg capsule,delayed release 20 mg PO DAILY 90 Days #180 cap 10/28/18 [History Last Taken 05/23/21] atorvastatin 20 mg tablet 20 mg PO DAILY #90 tab 01/06/19 [History Last Taken 05/23/21] gabapentin 300 mg capsule 300 mg PO DAILY #60 cap 01/06/19 [History Last Taken 05/23/21] calcium carbonate-vitamin D3 1 ea PO DAILY 01/17/19 [History Last Taken 05/23/21] hydrochlorothiazide 25 mg PO DAILY 01/17/19 [History Last Taken 05/23/21] losartan 100 mg PO DAILY 01/17/19 [History Last Taken 05/23/21] gabapentin 600 mg PO QHS 05/23/21 [History Last Taken 05/22/21] hydrocodone-acetaminophen 1 tab PO QHS 05/23/21 [History Last Taken 05/22/21] Allergy/AdvReac Type Severity Reaction Status Date / Time No Known Allergies Allergy Verified 05/23/21 13:50 Social History Smoking Status: Current every day smoker tobacco type: cigarettes EXAM Physical Exam Const Vital Signs: 05/23/21 13:48 05/23/21 14:18 05/23/21 14:52 Temperature 97.6 F L Temperature Source Temporal Pulse Rate 73 80 Respiratory Rate 16 19 H Respiratory Effort Normal Non-Labored Respiratory Depth Normal Respiratory Pattern Tachypnea Normal Blood Pressure 139/108 H Blood Pressure Mean 118 Pulse Ox 93 Oxygen Delivery Method Room Air Room Air Oxygen Flow Rate (L/min) 05/23/21 15:12 05/23/21 15:13 05/23/21 17:00 Temperature Temperature Source Pulse Rate 75 Respiratory Rate 20 H Respiratory Effort Respiratory Depth Respiratory Pattern Blood Pressure 118/67 Blood Pressure Mean 84 Pulse Ox 86 92 92 Oxygen Delivery Method Room Air Nasal Cannula Nasal Cannula Oxygen Flow Rate (L/min) 2 2 Positive well nourished General Appearance ED: NAD; Negative for pallor HEENT Reports moist mucous membranes normocephalic and atraumatic Eyes PERRL and EOMs intact bilaterally Resp normal respiratory effort Auscultation: wheezes expiratory wheezes Cardio Rate: regular rate Rhythm: regular rhythm GI non-tender and non-distended Palpation: soft Neuro oriented x3 Sensorium / Orientation: alert Psych mental status grossly normal Skin General Skin Exam: Negative for jaundice or pallor MDM MDM MDM Narrative Medical decision making narrative: Patient presents with a cough. She does not have significant shortness of breath. She is not had a fever. Patient states this is been going on for several days. On examination she was wheezing and she was given Solu-Medrol and breathing treatments at which point her pulse ox dropped to 86%. Patient's chest x-ray is interpreted by myself shows no acute cardiopulmonary process and the radiologist agree. CBC shows a slight leukocytosis at 11.5 with a slight left shift. Hemoglobin hematocrit are stable. Renal function electrolytes are normal. LFTs are unremarkable. Patient's rapid Covid was negative and so was her PCR. Procalcitonin is negative. Troponin was 4. Given the patient is hypoxic I did obtain a CTA of the chest and this is negative for PE or dissection but does identify bilateral pneumonia. Patient counseled that since she is hypoxic requiring O2 supplementation as well as Covid negative she would need to be admitted for IV antibiotics. I gave her Rocephin and azithromycin. Patient was discussed with the hospitalist for admission. Impression: 1. Hypoxic respiratory failure 2. Bilateral pneumonia Lab Data Labs: Laboratory Results - last 24 hr 05/23/21 05/23/21 05/23/21 14:16 14:16 14:16 WBC 11.5 H RBC 5.02 Hgb 14.1 Hct 41.4 MCV 82.5 MCH 28.1 MCHC 34.1 RDW Std Deviation 38.4 RDW Coeff of Bela 12.6 Plt Count 221 MPV 12.6 H Immature Gran % (Auto) 0.600 Neut % (Auto) 73.6 H Lymph % (Auto) 15.4 L Eagle % (Auto) 8.8 Eos % (Auto) 1.1 Baso % (Auto) 0.5 Absolute Neuts (auto) 8.5 H Absolute Lymphs (auto) 1.77 Nucleated RBC % 0 D-Dimer Quant (PE/DVT) Sodium 126 L Potassium 3.9 Chloride 94 L Carbon Dioxide 26.0 Anion Gap 6 BUN 12 Creatinine 0.77 Estim Creat Clear Calc 42.62 Est GFR (MDRD) Af Amer 95 Est GFR (MDRD) Non-Af 78 BUN/Creatinine Ratio 15.6 Glucose 115 H Calcium 9.3 Total Bilirubin 0.40 AST 11 L ALT 12 L Alkaline Phosphatase 97 Troponin I High Sens Total Protein 8.0 Albumin 3.3 Globulin 4.7 H Albumin/Globulin Ratio 0.7 L Procalcitonin 0.07 COVID-19 (LACHELLE) 05/23/21 05/23/21 05/23/21 14:16 14:50 16:17 WBC RBC Hgb Hct MCV MCH MCHC RDW Std Deviation RDW Coeff of Bela Plt Count MPV Immature Gran % (Auto) Neut % (Auto) Lymph % (Auto) Eagle % (Auto) Eos % (Auto) Baso % (Auto) Absolute Neuts (auto) Absolute Lymphs (auto) Nucleated RBC % D-Dimer Quant (PE/DVT) 1.19 H* Sodium Potassium Chloride Carbon Dioxide Anion Gap BUN Creatinine Estim Creat Clear Calc Est GFR (MDRD) Af Amer Est GFR (MDRD) Non-Af BUN/Creatinine Ratio Glucose Calcium Total Bilirubin AST ALT Alkaline Phosphatase Troponin I High Sens 4 Total Protein Albumin Globulin Albumin/Globulin Ratio Procalcitonin COVID-19 (LACHELLE) Negative Radiography Diagnostic Testing: Clinical Impression(s) from Imaging Studies Chest X-Ray 05/23/21 14:08 IMPRESSION: Chronic changes. No acute abnormality is seen. Electronically Signed: Harpal Hanson MD at 14:52 EST , Service support , Chest CTA 05/23/21 16:57 IMPRESSION: No demonstrated pulmonary embolism or arterial dissection. Bilateral pneumonia. Electronically Signed: José Antonio Blankenship MD at 17:40 EST , Service support , Discharge Plan Disposition Disposition: Acute Care Hospital [facility] Discharge Date/Time: 05/23/21 19:00
[2021-05-23] MEDS: Ipratropium/Albuterol Sulfate 3 ML AMPUL.NEB INHALATION (14:18)
[2021-05-23] MEDS: Albuterol 2.5 MG/3 ML VIAL.NEB. INHALATION (14:18)
[2021-05-23] MEDS: MethylPREDNISolone 125 MG/2 ML Vial IV (14:22)
[2021-05-23 14:24] LABS: Absolute Lymphocyte Count 1.77 X10^3/uL (0.83-4.51); Absolute Neutrophil Count 8.5 X10^3/uL (2.0-7.7); Basophil# 0.06 X10^3/uL; Basophil% 0.5 % (0-1); Eosinophil# 0.13 X10^3/uL; Eosinophils% 1.1 % (0-5); Hematocrit 41.4 % (37-47); Hemoglobin 14.1 g/dL (12.0-15.0); Lymphocyte # 1.77 X10^3/ul (0.83-4.51); Lymphocyte % 15.4 % (19-41); Mean Corp Hgb Conc 34.1 g/dL (32-36); Mean Corpuscular Hgb 28.1 pg (27.0-32.0); Mean Corpuscular Volume 82.5 fL (81-99); Mean Platelet Vol. 12.6 fl (6.2-12.0); Monocyte# 1.01 X10^3/uL; Monocyte% 8.8 % (0-10); NRBC Flagged by Analyzer 0 % (0-5); Neutrophil # 8.48 X10^3/uL (2.7-7.7); Neutrophil % 73.6 % (47-70); Platelet Count 221 K/mm3 (150-450); RBC Distribution Width CV 12.6 % (11.6-14.6); RBC Distribution Width SD 38.4 fl (35.1-43.9); Red Blood Count 5.02 M/mm3 (4.2-5.4); White Blood Count 11.5 K/mm3 (4.4-11.0)
[2021-05-23 15:04] LABS: ALB/GLOB Ratio 0.7 RATIO (0.9-2.4); AST(SGOT) 11 U/L (15-37); Alanine Aminotransfer ALT/SGPT 12 U/L (13-56); Albumin, Serum 3.3 g/dL (3.2-5.0); Alkaline Phosphatase 97 U/L (45-117); Anion Gap 6 (5-15); BUN 12 mg/dL (7-18); BUN/Creat Ratio 15.6 RATIO (10-20); Calcium,Total 9.3 mg/dL (8.5-10.1); Chloride 94 mmol/L (98-107); Creatinine, Serum 0.77 mg/dL (0.55-1.02); EST Glomerular Filtration Rate 78 mL/min (>60); Est Glom Filt Rate - Afr Amer 95 mL/min (>60); Estimated Creatinine Clearance 42.62 ml/min; Globulin 4.7 g/dL (2.2-4.2); Glucose 115 mg/dL (74-106); Potassium 3.9 mmol/L (3.5-5.1); Sodium Level 126 mmol/L (136-145)
[2021-05-23 15:10] LABS: Procalcitonin 0.07 ng/mL (0.00-0.09)
--- NOTE | 2021-05-23 16:11 | EKG12_ITS ---
Test Reason : Blood Pressure : / mmHG Vent. Rate : 077 BPM Atrial Rate : 077 BPM P-R Int : 164 ms QRS Dur : 086 ms QT Int : 386 ms P-R-T Axes : -04 021 031 degrees QTc Int : 436 ms Normal sinus rhythm Normal ECG Confirmed by NADEEM LINDQUIST, JOVANY ([id number]), news assignment editor SOCRATES HICKS ([id number]) on 05/25/2021 9:58:31 AM Referred By: MARIELOS Confirmed By:JOVANY SILVER MD
[2021-05-23 16:27] LABS: Probe Check PASS; Specimen Processing Control PASS
[2021-05-23 16:48] LABS: D-Dimer Quantitative (DVT/PE) 1.19 FEU/ug/m (0.27-0.49)
[2021-05-23 16:52] LABS: Troponin-I HS 4 pg/mL (3.0-54.0)
--- NOTE | 2021-05-23 16:57 | CT_ITS ---
STUDY: CTA Chest WO/W Contrast Injection 05/23/2021 5:38 PM REASON FOR EXAM: Female, 75 years old. hypoxia Individualized dose optimization techniques were used for this CT. TECHNIQUE: The examination was performed with and without the intravenous administration of 100 cc of IV Isovue 370 contrast material. Post-processing of the angiographic images was performed, with axial imaging and 3D reconstruction. MIPS images were obtained. COMPARISON: None. FINDINGS: There are degenerative changes of the shoulders. There is no pneumothorax. There is no demonstrated pleural abnormality. There are calcifications of the coronary arteries. Calcified lymph nodes in the mediastinum. Normal hilar regions. Normal pulmonary arteries. There is atherosclerotic calcification of the aortic arch with tortuosity and elongation of the aortic arch and descending thoracic aorta. There are multi-level degenerative changes of the thoracic spine. Simple cyst of the right kidney. Simple cyst of the left kidney. No follow-up required. CT/CTA Chest W/WO Contrast IMPRESSION: No demonstrated pulmonary embolism or arterial dissection. Bilateral pneumonia. Electronically Signed: José Antonio Blankenship MD at 17:40 EST , Service support ,
[2021-05-23] MEDS: Ceftriaxone 1 GM/50 ML BAG IV (18:32)
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
[2021-05-23 19:45] LABS: Magnesium 1.7 mg/dL (1.6-2.6)
[2021-05-23] MEDS: 0.9% Normal Saline 1,000 ML 100 ML IV (20:03)
[2021-05-23] MEDS: HYDROcodone Bitartrate/Apap 5/325 Tablet PO (21:29)
[2021-05-23] MEDS: Gabapentin 300 MG Capsule 600 MG PO (21:29)
[2021-05-23] MEDS: Enoxaparin 40 MG/0.4 ML Syringe SC (21:30)
[2021-05-23] MEDS: guaiFENesin 1,200 MG Tablet 1200 MG PO (21:30)
[2021-05-23 22:10] LABS: M R Staph aureus DNA By PCR Negative (Negative); Probe Check PASS; Specimen Processing Control PASS
[2021-05-24] VITALS (8 sets, daily range): BP systolic 104–123; BP diastolic 58–87; PULSE 57–71; RESP 16–22; TEMP 36.5–36.6; O2SAT 93–98
[2021-05-24 07:05] LABS: Absolute Neutrophil Count 9.6 X10^3/uL (2.0-7.7); Basophil# 0.04 X10^3/uL; Basophil% 0.3 % (0-1); Eosinophil# 0.03 X10^3/uL; Eosinophils% 0.3 % (0-5); Hematocrit 38.6 % (37-47); Lymphocyte % 10.2 % (19-41); Mean Corp Hgb Conc 33.7 g/dL (32-36); Mean Platelet Vol. 11.5 fl (6.2-12.0); Monocyte# 0.82 X10^3/uL; NRBC Flagged by Analyzer 0 % (0-5); Neutrophil # 9.56 X10^3/uL (2.7-7.7); Neutrophil % 81.3 % (47-70); Platelet Count 248 K/mm3 (150-450); RBC Distribution Width CV 12.7 % (11.6-14.6); RBC Distribution Width SD 38.7 fl (35.1-43.9); Red Blood Count 4.65 M/mm3 (4.2-5.4); White Blood Count 11.8 K/mm3 (4.4-11.0)
[2021-05-24 07:36] LABS: Anion Gap 8 (5-15); BUN 13 mg/dL (7-18); BUN/Creat Ratio 19.8 RATIO (10-20); Chloride 92 mmol/L (98-107); Creatinine, Serum 0.66 mg/dL (0.55-1.02); EST Glomerular Filtration Rate 93 mL/min (>60); Est Glom Filt Rate - Afr Amer 113 mL/min (>60); Estimated Creatinine Clearance 42.62 ml/min; Glucose 116 mg/dL (74-106); Phosphorus 3.6 mg/dL (2.5-4.9); Potassium 4.2 mmol/L (3.5-5.1); Sodium Level 126 mmol/L (136-145)
[2021-05-24] MEDS: Pantoprazole Sodium 20 MG Tablet PO (09:20)
[2021-05-24] MEDS: Gabapentin 300 MG Capsule PO (09:21)
[2021-05-24] MEDS: Enoxaparin 40 MG/0.4 ML Syringe SC (09:21)
[2021-05-24] MEDS: Atorvastatin Calcium 20 MG Tablet PO (09:21)
[2021-05-24] MEDS: Calcium Carb/Vitamin D 1 TABLET Tablet PO (09:21)
[2021-05-24] MEDS: guaiFENesin 1,200 MG Tablet 1200 MG PO ×2 (09:21→21:17)
--- NOTE | 2021-05-24 10:30 | PN.HOSP_ITS ---
Subjective Subjective Patient seen and examined. She was admitted with a complaint of shortness of breath and is being managed for bilateral pneumonia. She still complains of shortness of breath this morning. She is also coughing and wheezing. She admits to an extensive smoking history, but says she has never been diagnosed with COPD. She has remained hemodynamically stable. She is on 2 L of oxygen. Objective Data Objective Data Vital Signs: Vital Signs Temp Pulse Resp BP Pulse Ox 97.8 F 57 L 16 120/87 H 97 05/24/21 09:10 05/24/21 09:10 05/24/21 09:10 05/24/21 09:10 05/24/21 09:10 Oxygen Flow Rate (L/min) 2 Oxygen Delivery Method Nasal Cannula Weight: 150 lb 5.684 oz Body Mass Index (BMI) 25.8 Intake & Output: Intake and Output for Last 24 Hours 05/22/21 05/23/21 05/24/21 23:59 23:59 23:59 Intake Total 308.33 / 308.33 Balance 308.33 / 308.33 Lab / Micro Data Result Diagrams: 05/24/21 05:55 05/24/21 05:55 Labs: Laboratory Results - last 24 hr 05/23/21 14:16: WBC 11.5 H, RBC 5.02, Hgb 14.1, Hct 41.4, MCV 82.5, MCH 28.1, MCHC 34.1, RDW Std Deviation 38.4, RDW Coeff of Bela 12.6, Plt Count 221, MPV 12.6 H, Immature Gran % (Auto) 0.600, Neut % (Auto) 73.6 H, Lymph % (Auto) 15.4 L, [place] % (Auto) 8.8, Eos % (Auto) 1.1, Baso % (Auto) 0.5, Absolute Neuts (auto) 8.5 H, Absolute Lymphs (auto) 1.77, Nucleated RBC % 0 05/23/21 14:16: Sodium 126 L, Potassium 3.9, Chloride 94 L, Carbon Dioxide 26.0, Anion Gap 6, BUN 12, Creatinine 0.77, Estim Creat Clear Calc 42.62, Est GFR (MDRD) Af Amer 95, Est GFR (MDRD) Non-Af 78, BUN/Creatinine Ratio 15.6, Glucose 115 H, Calcium 9.3, Total Bilirubin 0.40, AST 11 L, ALT 12 L, Alkaline Phosphatase 97, Total Protein 8.0, Albumin 3.3, Globulin 4.7 H, Albumin/Globulin Ratio 0.7 L 05/23/21 14:16: Procalcitonin 0.07 05/23/21 14:16: Troponin I High Sens 4 05/23/21 14:16: Magnesium 1.7 05/23/21 14:50: COVID-19 (LACHELLE) Negative 05/23/21 16:17: D-Dimer Quant (PE/DVT) 1.19 H* 05/23/21 20:20: MRSA (PCR) Negative 05/24/21 05:55: WBC 11.8 H, RBC 4.65, Hgb 13.0, Hct 38.6, MCV 83.0, MCH 28.0, MCHC 33.7, RDW Std Deviation 38.7, RDW Coeff of Bela 12.7, Plt Count 248, MPV 11. 5, Immature Gran % (Auto) 0.900, Neut % (Auto) 81.3 H, Lymph % (Auto) 10.2 L, [place] % (Auto) 7.0, Eos % (Auto) 0.3, Baso % (Auto) 0.3, Absolute Neuts (auto) 9.6 H, Absolute Lymphs (auto) 1.20, Nucleated RBC % 0 05/24/21 05:55: Sodium 126 L, Potassium 4.2, Chloride 92 L, Carbon Dioxide 26.0, Anion Gap 8, BUN 13, Creatinine 0.66, Estim Creat Clear Calc 42.62, Est GFR (MDRD) Af Amer 113, Est GFR (MDRD) Non-Af 93, BUN/Creatinine Ratio 19.8, Glucose 116 H, Calcium 9.0, Phosphorus 3.6 Micro: Microbiology 05/23/21 20:07 Mucosa - Nose Respiratory Panel (PCR) - Final 05/23/21 22:13 Urine, Clean Catch Streptococcus pneumoniae Antigen (M - Final 05/23/21 22:13 Urine, Clean Catch Legionella Antigen - Final 05/23/21 14:16 Nasal Secretion SARS-CoV-2 Antigen (Rapid) - Final Radiography Diagnostic Testing: Radiology Impression Chest X-Ray 05/23/21 14:08 IMPRESSION: Chronic changes. No acute abnormality is seen. Electronically Signed: Harpal Hanson MD at 14:52 EST , Service support , Chest CTA 05/23/21 16:57 IMPRESSION: No demonstrated pulmonary embolism or arterial dissection. Bilateral pneumonia. Electronically Signed: José Antonio Blankenship MD at 17:40 EST , Service support , Physical Exam Const alert, oriented x3 and no apparent distress Exam Limitations: no limitations HEENT head/scalp atraumatic and moist oral mucous membranes Head and Scalp: normocephalic Eyes PERRL, EOMs intact bilaterally and conjunctivae normal Neck no lymphadenopathy Resp Resp Narrative: wheezing and rhonchi in all lung hastings bilaterally. on 2L of oxygen by nasal canula. Cardio regular rate, regular rhythm, S1 normal heart sound, S2 normal heart sound and no murmurs GI normal to inspection, nondistended, normoactive bowel sounds, soft to palpation, non-tender and non-distended Extremity normal to inspection, full ROM and no clubbing, cyanosis or edema Peripheral Pulses: Yes pulses 2+ throughout Skin no rashes or lesions noted Neuro oriented x3, CN's II-XII intact bilaterally and moves all extremities Sensorium / Orientation: awake and alert Psych affect normal Assessment & Plan Assessment/Plan (1) Bilateral pneumonia: PLAN: #Acute hypoxic respiratory insufficiency due to bilateral pneumonia * on IV ceftriaxone and azithromycin * on breathing treatment with bronchodilators * Urine for strep and Legionella were negative * Blood cultures x2 are pending. * Titrate oxygen to maintain saturation above 90%. Breathing treatments bronchod ilators. * #Probable COPD exacerbation * Patient has bilateral wheezing and rhonchi and has an extensive smoking history. She is never had a PFT. In light of her extensive smoking history, I suspect the patient likely has COPD. * Start on IV Solu-Medrol 40 mg every 8 * Will recommend outpatient follow-up with pulmonology for PFTs to formally diagnose COPD. * Breathing treatments bronchodilators. * #Elevated D-dimer: D-dimer was 1.19. CTA was however negative for PE. #Hyponatremia: * Sodium was 126 on admission and is still 126. * Will check urine osmolality and serum osmolality as well as urine sodium. * HCTZ currently on hold. * Continue gentle hydration with IV fluids. * #Hypertension: HCTZ on hold due to hyponatremia on admission. On atenolol IV hydralazine as needed #Hyperlipidemia: On statin DVT prophylaxis: Lovenox Charges/Coding Visit Charges Inpatient E&M: 82248 Subs Hosp L3
--- NOTE | 2021-05-24 10:35 | CASEMGMT ---
SILVIA CUNNINGHAM Assessment: Face to Face with pt for initial transition planning/care coordination assessment. SILVIA CUNNINGHAM introduced self and role at [facility], pt voices understanding and consents to assessment. Pt is A/O x4 and answers all questions appropriately at this time. Pt sitting up in bed with O2 on in no distress. Care providers, pharmacy, and demographics verified/updated. Admitting Dx:bilat pna PCP:Alonso Specialists:Pt denies. Preferred Pharmacy: [facility] Insurance: [facility], [facility] Prescription Benefit: yes LW/HPOA: Pt denies having a LW/DPOA and denies need for info regarding AD. LNOK: Fern Bradford, ; Jacek Bradofrd, son Living Arrangements: Pt lives with and 54 yo mentally challenged son in a single story house with 12 steps to enter from the deck with a rail. Pt reports she is I in ADL's and denies concerns at home. Transportation: Pt drives self and denies concerns with transportation. DME/HHC/SNF: Pt has a cane and walker at home but does not use. Pt has had HHC in the past, she is unsure of the name of the agency. Pt denies SNF stays. Discussed local DME companies, should pt need O2 at dc, pt denies having a preference. Pt states no concerns with going home at time of dc. Pt states no further concerns/needs. CM to follow. Advised pt to ask CM if any further question/concerns/needs arise, voices understanding. Pt Goal: Home Plan: Home
[2021-05-24 13:21] LABS: Osmolality, Serum 273 mOsm/KG (280-301)
--- NOTE | 2021-05-24 17:14 | CHAPLAIN ---
Type of Pastoral Visit _x__ Initial Visit ___ Follow-up Visit ___ On-call Visit ___ General Patient Visit ___ Spiritual Assessment ___ Family Conference ___ Bereavement ___ Rapid Response ___ Code Blue ___ Other (describe below) Pastoral Care Referral From _x__ Patient ___ Family ___ Nurse ___ Physician ___ Manager Inventory Management ___ Stain Dipper ___ Other (describe below) Sacrament/Intervention _x__ Active listening ___ Anointing ___ Oriental Orthodox ___ Bereavement ___ Communion ___ Coni exploration ___ ___ Life review _x__ Prayer ___ Reconciliation ___ Sacrament of Sick ___ Supportive presence ___ Wedding ___ Other (describe below) Pastoral Comments
[2021-05-24 18:00] LABS: Osmolality, Urine 503 mOsm/KG
[2021-05-24] MEDS: Albuterol 2.5 MG/3 ML VIAL.NEB. INHALATION (19:05)
[2021-05-24] MEDS: Gabapentin 300 MG Capsule 600 MG PO (21:17)
[2021-05-24] MEDS: 0.9% Saline Lock 10 ML Syringe IV (21:17)
[2021-05-24] MEDS: HYDROcodone Bitartrate/Apap 5/325 Tablet PO (21:17)
[2021-05-24 22:22] LABS: Urine Sodium 52 mmol/L (Not Establ.)
[2021-05-25] VITALS (8 sets, daily range): BP systolic 100–141; BP diastolic 76–80; PULSE 59–97; RESP 17–20; TEMP 36.4–36.7; O2SAT 94–97
[2021-05-25] MEDS: 0.9% Saline Lock 10 ML Syringe IV ×4 (05:50→21:52)
[2021-05-25 08:25] LABS: Absolute Lymphocyte Count 1.07 X10^3/uL (0.83-4.51); Absolute Neutrophil Count 9.5 X10^3/uL (2.0-7.7); Basophil# 0.03 X10^3/uL; Basophil% 0.3 % (0-1); Eosinophil# 0.02 X10^3/uL; Eosinophils% 0.2 % (0-5); Hematocrit 37.5 % (37-47); Hemoglobin 12.7 g/dL (12.0-15.0); Lymphocyte # 1.07 X10^3/ul (0.83-4.51); Lymphocyte % 9.5 % (19-41); Mean Corp Hgb Conc 33.9 g/dL (32-36); Mean Corpuscular Hgb 28.2 pg (27.0-32.0); Mean Corpuscular Volume 83.1 fL (81-99); Mean Platelet Vol. 11.6 fl (6.2-12.0); Monocyte# 0.49 X10^3/uL; Monocyte% 4.3 % (0-10); NRBC Flagged by Analyzer 0 % (0-5); Neutrophil # 9.47 X10^3/uL (2.7-7.7); Platelet Count 221 K/mm3 (150-450); RBC Distribution Width CV 12.7 % (11.6-14.6); RBC Distribution Width SD 38.8 fl (35.1-43.9); Red Blood Count 4.51 M/mm3 (4.2-5.4); White Blood Count 11.3 K/mm3 (4.4-11.0)
[2021-05-25 08:46] LABS: Anion Gap 7 (5-15); BUN 19 mg/dL (7-18); BUN/Creat Ratio 27.8 RATIO (10-20); Calcium,Total 8.9 mg/dL (8.5-10.1); Chloride 93 mmol/L (98-107); Creatinine, Serum 0.68 mg/dL (0.55-1.02); EST Glomerular Filtration Rate 89 mL/min (>60); Est Glom Filt Rate - Afr Amer 108 mL/min (>60); Estimated Creatinine Clearance 42.62 ml/min; Glucose 130 mg/dL (74-106); Potassium 4.4 mmol/L (3.5-5.1); Sodium Level 126 mmol/L (136-145)
[2021-05-25] MEDS: Atorvastatin Calcium 20 MG Tablet PO (09:50)
[2021-05-25] MEDS: Enoxaparin 40 MG/0.4 ML Syringe SC (09:50)
[2021-05-25] MEDS: Calcium Carb/Vitamin D 1 TABLET Tablet PO (09:51)
[2021-05-25] MEDS: guaiFENesin 1,200 MG Tablet 1200 MG PO ×2 (09:51→21:52)
[2021-05-25] MEDS: Gabapentin 300 MG Capsule PO (09:51)
[2021-05-25] MEDS: Pantoprazole Sodium 20 MG Tablet PO (09:51)
--- NOTE | 2021-05-25 10:20 | PN.HOSP_ITS ---
Subjective Subjective Patient seen and examined. She had no active complaints and felt much better. She was off oxygen and on room air. Review of systems otherwise negative. She has remained hemodynamically stable. Objective Data Objective Data Vital Signs: Vital Signs Temp Pulse Resp BP Pulse Ox 97.8 F 59 L 18 125/80 H 94 05/25/21 08:18 05/25/21 08:18 05/25/21 08:18 05/25/21 08:18 05/25/21 08:18 Oxygen Flow Rate (L/min) 2 Oxygen Delivery Method Room Air Weight: 150 lb 5.684 oz Body Mass Index (BMI) 25.8 Intake & Output: Intake and Output for Last 24 Hours 05/23/21 05/24/21 05/25/21 23:59 23:59 23:59 Intake Total 308.33 / 308.33 2301.67 / 2301.67 240 / 240 Balance 308.33 / 308.33 2301.67 / 2301.67 240 / 240 Lab / Micro Data Result Diagrams: 05/25/21 07:54 05/25/21 07:54 Labs: Laboratory Results - last 24 hr 05/24/21 12:25: Serum Osmolality 273 L 05/24/21 16:26: Urine Osmolality 503 05/24/21 22:07: Ur Random Sodium 52 05/25/21 07:54: WBC 11.3 H, RBC 4.51, Hgb 12.7, Hct 37.5, MCV 83.1, MCH 28.2, MCHC 33.9, RDW Std Deviation 38.8, RDW Coeff of Bela 12.7, Plt Count 221, MPV 11.6, Immature Gran % (Auto) 1.700 H, Neut % (Auto) 84.0 H, Lymph % (Auto) 9.5 L , [place] % (Auto) 4.3, Eos % (Auto) 0.2, Baso % (Auto) 0.3, Absolute Neuts (auto) 9.5 H, Absolute Lymphs (auto) 1.07, Nucleated RBC % 0 05/25/21 07:54: Sodium 126 L, Potassium 4.4, Chloride 93 L, Carbon Dioxide 26.0, Anion Gap 7, BUN 19 H, Creatinine 0.68, Estim Creat Clear Calc 42.62, Est GFR (MDRD) Af Amer 108, Est GFR (MDRD) Non-Af 89, BUN/Creatinine Ratio 27.8 H, Glucose 130 H, Calcium 8.9 Micro: Microbiology 05/23/21 20:07 Mucosa - Nose Respiratory Panel (PCR) - Final 05/23/21 22:13 Urine, Clean Catch Streptococcus pneumoniae Antigen (M - Final 05/23/21 22:13 Urine, Clean Catch Legionella Antigen - Final 05/23/21 14:16 Nasal Secretion SARS-CoV-2 Antigen (Rapid) - Final Physical Exam Const alert, oriented x3 and no apparent distress Exam Limitations: no limitations HEENT head/scalp atraumatic and moist oral mucous membranes Head and Scalp: normocephalic Eyes PERRL, EOMs intact bilaterally and conjunctivae normal Neck no lymphadenopathy Resp Resp Narrative: wheezing and rhonchi in all lung hastings bilaterally. on room air. Cardio regular rate, regular rhythm, S1 normal heart sound, S2 normal heart sound and no murmurs GI normal to inspection, nondistended, normoactive bowel sounds, soft to palpation, non-tender and non-distended Extremity normal to inspection, full ROM and no clubbing, cyanosis or edema Peripheral Pulses: Yes pulses 2+ throughout Skin no rashes or lesions noted Neuro oriented x3, CN's II-XII intact bilaterally and moves all extremities Sensorium / Orientation: awake and alert Psych affect normal Assessment & Plan Assessment/Plan (1) Bilateral pneumonia: PLAN: #Acute hypoxic respiratory insufficiency due to bilateral pneumonia * on IV ceftriaxone and azithromycin * on breathing treatment with bronchodilators * Urine for strep and Legionella were negative * Blood cultures x2 are pending. * now on room air. * Titrate oxygen as needed to maintain saturation above 90%. Breathing treatments with bronchodilators. * #Probable COPD exacerbation * on IV solumedrol 40mg 8, and breathing treatment with bronchodilators. * Will recommend outpatient follow-up with pulmonology for PFTs to formally diagnose COPD. * Breathing treatments bronchodilators. * #Elevated D-dimer: D-dimer was 1.19. CTA was however negative for PE. #Hyponatremia: * sodium has persisted at 126 despite hydration with IVF. * Will check urine osmolality and serum osmolality as well as urine sodium. * HCTZ currently on hold. * Continue gentle hydration with IV fluids. * serum osmolality is low at 273; urine osmolality is 503 which is on the higher side. Urine sodium is 52. * will check BNP, and if not elevated, continue hydration with IVF. will also check TSH * #Hypertension: HCTZ on hold due to hyponatremia on admission. On atenolol. IV hydralazine as needed #Hyperlipidemia: On statin DVT prophylaxis: Lovenox Charges/Coding Visit Charges Inpatient E&M: 55210 Subs Hosp L2
[2021-05-25] MEDS: BENZOCAINE/MENTHOL 1 LOZENGE MUCOUS MEM ×2 (15:22→17:53)
--- NOTE | 2021-05-25 18:15 | NURSING ---
reviewed documentation by Joselin Dudley, student RN
[2021-05-25] MEDS: Gabapentin 300 MG Capsule 600 MG PO (21:50)
[2021-05-25] MEDS: HYDROcodone Bitartrate/Apap 5/325 Tablet PO (21:50)
[2021-05-26] VITALS (7 sets, daily range): BP systolic 116–160; BP diastolic 60–88; PULSE 57–73; RESP 16–18; TEMP 36.3–36.7; O2SAT 92–97
--- NOTE | 2021-05-26 04:20 | NURSING ---
This RN reviewed SN charting and agree with charting.
[2021-05-26] MEDS: 0.9% Saline Lock 10 ML Syringe IV ×3 (05:13→14:33)
[2021-05-26 05:53] LABS: Absolute Lymphocyte Count 1.24 X10^3/uL (0.83-4.51); Absolute Neutrophil Count 10.5 X10^3/uL (2.0-7.7); Basophil# 0.06 X10^3/uL; Basophil% 0.5 % (0-1); Eosinophil# 0.01 X10^3/uL; Eosinophils% 0.1 % (0-5); Hematocrit 36.6 % (37-47); Hemoglobin 12.3 g/dL (12.0-15.0); Lymphocyte # 1.24 X10^3/ul (0.83-4.51); Lymphocyte % 9.5 % (19-41); Mean Corp Hgb Conc 33.6 g/dL (32-36); Mean Corpuscular Hgb 28.1 pg (27.0-32.0); Mean Corpuscular Volume 83.8 fL (81-99); Mean Platelet Vol. 11.9 fl (6.2-12.0); Monocyte# 0.84 X10^3/uL; Monocyte% 6.4 % (0-10); NRBC Flagged by Analyzer 0 % (0-5); Neutrophil # 10.51 X10^3/uL (2.7-7.7); Neutrophil % 80.5 % (47-70); Platelet Count 264 K/mm3 (150-450); RBC Distribution Width CV 12.8 % (11.6-14.6); RBC Distribution Width SD 39.1 fl (35.1-43.9); Red Blood Count 4.37 M/mm3 (4.2-5.4); White Blood Count 13.1 K/mm3 (4.4-11.0)
[2021-05-26 06:39] LABS: Anion Gap 5 (5-15); BUN 21 mg/dL (7-18); BUN/Creat Ratio 30.6 RATIO (10-20); Calcium,Total 8.8 mg/dL (8.5-10.1); Chloride 96 mmol/L (98-107); Creatinine, Serum 0.69 mg/dL (0.55-1.02); EST Glomerular Filtration Rate 89 mL/min (>60); Est Glom Filt Rate - Afr Amer 108 mL/min (>60); Estimated Creatinine Clearance 42.62 ml/min; Glucose 141 mg/dL (74-106); Potassium 4.3 mmol/L (3.5-5.1); Sodium Level 126 mmol/L (136-145)
[2021-05-26] MEDS: BENZOCAINE/MENTHOL 1 LOZENGE MUCOUS MEM (07:01)
--- NOTE | 2021-05-26 08:41 | CON.PCM.RE_ITS ---
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 Urine study is compatible with SIADH Na has been stable at [address] the patient on fluid restriction Avoid HCTZ at discharge No need for 3% NaCl as she is asymptomatic check Na in am HPI Consult Data Date of Consult: 05/26/21 HPI Narrative HPI Narrative: VANNA MCFADDEN, is a 75 F who presents with COPD exacerbation and pneumonia renal team is consulted for hyponatremia. Na was 133 in 2017. patient has on on HCTZ for years. Patient presented with Na 126 and remains at 126. HCTZ has been off No headache. no nausea No vomiting. No asterixis no diarrhea. eating well ROS: 12 SYSTEM REVIEW IS NEGATIVE [facility] Medical History HTN (hypertension) Hyperlipemia Home Medications atenolol 25 mg tablet 25 mg PO DAILY 90 Days #90 tab 10/28/18 [History Last Taken 05/23/21] omeprazole 20 mg capsule,delayed release 20 mg PO DAILY 90 Days #180 cap 10/28/18 [History Last Taken 05/23/21] atorvastatin 20 mg tablet 20 mg PO DAILY #90 tab 01/06/19 [History Last Taken 05/23/21] gabapentin 300 mg capsule 300 mg PO DAILY #60 cap 01/06/19 [History Last Taken 05/23/21] calcium carbonate-vitamin D3 1 ea PO DAILY 01/17/19 [History Last Taken 05/23/21] hydrochlorothiazide 25 mg PO DAILY 01/17/19 [History Last Taken 05/23/21] losartan 100 mg PO DAILY 01/17/19 [History Last Taken 05/23/21] gabapentin 600 mg PO QHS 05/23/21 [History Last Taken 05/22/21] hydrocodone-acetaminophen 1 tab PO QHS 05/23/21 [History Last Taken 05/22/21] Allergy/AdvReac Type Severity Reaction Status Date / Time No Known Allergies Allergy Verified 05/23/21 13:50 Social History Smoking Status: Current every day smoker tobacco type: cigarettes Physical Exam Narrative NAD No JVD AT NC S1S2 RRR CTA SOFT + NS no tenderness AA0x3 No edema No skin rash Lab / Micro Data Result Diagrams: 05/26/21 05:08 05/26/21 05:08 Labs: Laboratory Results - last 24 hr 05/25/21 07:54: Sodium 126 L, Potassium 4.4, Chloride 93 L, Carbon Dioxide 26.0, Anion Gap 7, BUN 19 H, Creatinine 0.68, Estim Creat Clear Calc 42.62, Est GFR (MDRD) Af Amer 108, Est GFR (MDRD) Non-Af 89, BUN/Creatinine Ratio 27.8 H, Glucose 130 H, Calcium 8.9 05/26/21 05:08: WBC 13.1 H, RBC 4.37, Hgb 12.3, Hct 36.6 L, MCV 83.8, MCH 28.1, MCHC 33.6, RDW Std Deviation 39.1, RDW Coeff of Bela 12.8, Plt Count 264, MPV 11.9, Immature Gran % (Auto) 3.000 H, Neut % (Auto) 80.5 H, Lymph % (Auto) 9.5 L , [place] % (Auto) 6.4, Eos % (Auto) 0.1, Baso % (Auto) 0.5, Absolute Neuts (auto) 10.5 H, Absolute Lymphs (auto) 1.24, Nucleated RBC % 0 05/26/21 05:08: Sodium 126 L, Potassium 4.3, Chloride 96 L, Carbon Dioxide 25.0, Anion Gap 5, BUN 21 H, Creatinine 0.69, Estim Creat Clear Calc 42.62, Est GFR (MDRD) Af Amer 108, Est GFR (MDRD) Non-Af 89, BUN/Creatinine Ratio 30.6 H, Glucose 141 H, Calcium 8.8 Micro: Microbiology 05/24/21 20:05 Sputum, Expectorated/Coughed Gram Stain - Final
[2021-05-26] MEDS: Atorvastatin Calcium 20 MG Tablet PO (09:37)
[2021-05-26] MEDS: Gabapentin 300 MG Capsule PO (09:37)
[2021-05-26] MEDS: guaiFENesin 1,200 MG Tablet 1200 MG PO ×2 (09:37→22:11)
[2021-05-26] MEDS: Pantoprazole Sodium 20 MG Tablet PO (09:37)
[2021-05-26] MEDS: Losartan Potassium 100 MG Tablet PO (09:37)
[2021-05-26] MEDS: Atenolol 25 MG Tablet PO (09:37)
[2021-05-26] MEDS: Enoxaparin 40 MG/0.4 ML Syringe SC (09:38)
[2021-05-26] MEDS: Calcium Carb/Vitamin D 1 TABLET Tablet PO (09:41)
--- NOTE | 2021-05-26 11:55 | PN.HOSP_ITS ---
Subjective Subjective Patient seen and examined. She had no complaints this morning and had an uneventful night. She is on room air. Review of stents otherwise negative. Sodium remains low at 126. Objective Data Objective Data Vital Signs: Vital Signs Temp Pulse Resp BP Pulse Ox 97.9 F 62 16 147/73 H 94 05/26/21 07:45 05/26/21 07:45 05/26/21 07:45 05/26/21 07:45 05/26/21 07:51 Oxygen Flow Rate (L/min) 2 Oxygen Delivery Method Room Air Weight: 150 lb 5.684 oz Body Mass Index (BMI) 25.8 Intake & Output: Intake and Output for Last 24 Hours 05/24/21 05/25/21 05/26/21 23:59 23:59 23:59 Intake Total 2301.67 / 2301.67 1325 / 1565 830 / 830 Output Total 200 / 200 Balance 2301.67 / 2301.67 1325 / 1565 630 / 630 Lab / Micro Data Result Diagrams: 05/26/21 05:08 05/26/21 05:08 Labs: Laboratory Results - last 24 hr 05/26/21 05:08: WBC 13.1 H, RBC 4.37, Hgb 12.3, Hct 36.6 L, MCV 83.8, MCH 28.1, MCHC 33.6, RDW Std Deviation 39.1, RDW Coeff of Bela 12.8, Plt Count 264, MPV 11.9, Immature Gran % (Auto) 3.000 H, Neut % (Auto) 80.5 H, Lymph % (Auto) 9.5 L , [place] % (Auto) 6.4, Eos % (Auto) 0.1, Baso % (Auto) 0.5, Absolute Neuts (auto) 10.5 H, Absolute Lymphs (auto) 1.24, Nucleated RBC % 0 05/26/21 05:08: Sodium 126 L, Potassium 4.3, Chloride 96 L, Carbon Dioxide 25.0, Anion Gap 5, BUN 21 H, Creatinine 0.69, Estim Creat Clear Calc 42.62, Est GFR (MDRD) Af Amer 108, Est GFR (MDRD) Non-Af 89, BUN/Creatinine Ratio 30.6 H, Glucose 141 H, Calcium 8.8 Micro: Microbiology 05/23/21 20:40 Blood Culture (Wb) - Arm Left Blood Culture - Preliminary No growth in 48 hours. 05/23/21 20:30 Blood Culture (Wb) - Anticubital Left Blood Culture - P reliminary No growth in 48 hours. 05/24/21 20:05 Sputum, Expectorated/Coughed Gram Stain - Final 05/23/21 20:07 Mucosa - Nose Respiratory Panel (PCR) - Final 05/23/21 22:13 Urine, Clean Catch Streptococcus pneumoniae Antigen (M - Final 05/23/21 22:13 Urine, Clean Catch Legionella Antigen - Final 05/23/21 14:16 Nasal Secretion SARS-CoV-2 Antigen (Rapid) - Final Physical Exam Const alert, oriented x3 and no apparent distress Exam Limitations: no limitations HEENT head/scalp atraumatic and moist oral mucous membranes Head and Scalp: normocephalic Eyes PERRL, EOMs intact bilaterally and conjunctivae normal Neck no lymphadenopathy Resp Resp Narrative: wheezing and rhonchi have improved significantly. on room air. Cardio regular rate, regular rhythm, S1 normal heart sound, S2 normal heart sound and no murmurs GI normal to inspection, nondistended, normoactive bowel sounds, soft to palpation, non-tender and non-distended Extremity normal to inspection, full ROM and no clubbing, cyanosis or edema Peripheral Pulses: Yes pulses 2+ throughout Skin no rashes or lesions noted Neuro oriented x3, CN's II-XII intact bilaterally and moves all extremities Sensorium / Orientation: awake and alert Psych affect normal Assessment & Plan Assessment/Plan (1) Bilateral pneumonia: PLAN: #Acute hypoxic respiratory insufficiency due to bilateral pneumonia * on IV ceftriaxone and azithromycin * on breathing treatment with bronchodilators * Urine for strep and Legionella were negative * Blood cultures x2 are pending. * now on room air. * Titrate oxygen as needed to maintain saturation above 90%. Breathing treatments with bronchodilators. * #Probable COPD exacerbation * on IV solumedrol 40mg 8, and breathing treatment with bronchodilators. * Will recommend outpatient follow-up with pulmonology for PFTs to formally diagnose COPD. * Breathing treatments bronchodilators. * switch steroids to PO prednisone today. * #Elevated D-dimer: D-dimer was 1.19. CTA was however negative for PE. #Hyponatremia: * sodium has persisted at 126 despite hydration with IVF.. * HCTZ currently on hold. * Continue gentle hydration with IV fluids. * nephrology consulted. recommend fluid restriction. * #Hypertension: HCTZ on hold due to hyponatremia on admission. On atenolol. IV hydralazine as needed #Hyperlipidemia: On statin DVT prophylaxis: Lovenox Disposition: for likely DC tomorrow. Nephrology wishes to monitor patient's sodium overnight. Charges/Coding Visit Charges Inpatient E&M: 04974 Subs Hosp L2
--- NOTE | 2021-05-26 19:38 | PCS.PANDOC ---
PANDEMIC DOCUMENTATION INITIATED: Date: 02/21/2021 Time: 190
[2021-05-26] MEDS: Gabapentin 300 MG Capsule 600 MG PO (22:11)
[2021-05-26] MEDS: HYDROcodone Bitartrate/Apap 5/325 Tablet PO (22:11)
[2021-05-27 04:56] VITALS: BP 162/88; PULSE 56; RESP 18; TEMP 36.6; O2SAT 99
[2021-05-27] MEDS: 0.9% Saline Lock 10 ML Syringe IV ×2 (05:01→10:18)
[2021-05-27 05:37] LABS: Absolute Lymphocyte Count 1.46 X10^3/uL (0.83-4.51); Absolute Neutrophil Count 10.8 X10^3/uL (2.0-7.7); Basophil# 0.04 X10^3/uL; Basophil% 0.3 % (0-1); Eosinophil# 0.01 X10^3/uL; Eosinophils% 0.1 % (0-5); Hemoglobin 12.9 g/dL (12.0-15.0); Lymphocyte # 1.46 X10^3/ul (0.83-4.51); Lymphocyte % 10.6 % (19-41); Mean Corp Hgb Conc 33.9 g/dL (32-36); Mean Corpuscular Hgb 28.5 pg (27.0-32.0); Mean Corpuscular Volume 84.1 fL (81-99); Monocyte# 0.82 X10^3/uL; Monocyte% 5.9 % (0-10); NRBC Flagged by Analyzer 0 % (0-5); Neutrophil # 10.78 X10^3/uL (2.7-7.7); Neutrophil % 78.1 % (47-70); Platelet Count 293 K/mm3 (150-450); RBC Distribution Width CV 13.1 % (11.6-14.6); RBC Distribution Width SD 40.1 fl (35.1-43.9); Red Blood Count 4.52 M/mm3 (4.2-5.4); White Blood Count 13.8 K/mm3 (4.4-11.0)
[2021-05-27 06:00] LABS: Anion Gap 7 (5-15); BUN 24 mg/dL (7-18); BUN/Creat Ratio 31.7 RATIO (10-20); Calcium,Total 8.8 mg/dL (8.5-10.1); Chloride 98 mmol/L (98-107); Creatinine, Serum 0.76 mg/dL (0.55-1.02); EST Glomerular Filtration Rate 79 mL/min (>60); Est Glom Filt Rate - Afr Amer 96 mL/min (>60); Estimated Creatinine Clearance 42.62 ml/min; Glucose 133 mg/dL (74-106); Potassium 4.4 mmol/L (3.5-5.1); Sodium Level 130 mmol/L (136-145)
--- NOTE | 2021-05-27 07:33 | PCM.PN.REN ---
Subjective Subjective no complaints Objective Data Objective Data Vital Signs: Vital Signs Temp Pulse Resp BP Pulse Ox 97.9 F 56 L 18 162/88 H 99 05/27/21 04:56 05/27/21 04:56 05/27/21 04:56 05/27/21 04:56 05/27/21 04:56 Oxygen Flow Rate (L/min) 2 Oxygen Delivery Method Room Air Weight: 68.2 kg Body Mass Index (BMI) 25.8 Intake & Output: Intake and Output for Last 24 Hours 05/25/21 05/26/21 05/27/21 23:59 23:59 23:59 Intake Total 1325 / 1565 1785 / 1785 240 / 240 Output Total 500 / 500 Balance 1325 / 1565 1285 / 1285 240 / 240 Lab / Micro Data Result Diagrams: 05/27/21 05:05 05/27/21 05:05 Labs: Laboratory Results - last 24 hr 05/27/21 05:05: WBC 13.8 H, RBC 4.52, Hgb 12.9, Hct 38.0, MCV 84.1, MCH 28.5, MCHC 33.9, RDW Std Deviation 40.1, RDW Coeff of Bela 13.1, Plt Count 293, MPV 11.0, Immature Gran % (Auto) 5.000 H, Neut % (Auto) 78.1 H, Lymph % (Auto) 10.6 L, [place] % (Auto) 5.9, Eos % (Auto) 0.1, Baso % (Auto) 0.3, Absolute Neuts (auto) 10.8 H, Absolute Lymphs (auto) 1.46, Nucleated RBC % 0 05/27/21 05:05: Sodium 130 L, Potassium 4.4, Chloride 98, Carbon Dioxide 25.0, Anion Gap 7, BUN 24 H, Creatinine 0.76, Estim Creat Clear Calc 42.62, Est GFR (MDRD) Af Amer 96, Est GFR (MDRD) Non-Af 79, BUN/Creatinine Ratio 31.7 H, Glucose 133 H, Calcium 8.8 Micro: Microbiology 05/24/21 20:05 Sputum, Expectorated/Coughed Gram Stain - Final 05/24/21 20:05 Sputum, Expectorated/Coughed Respiratory Culture - Preliminary Alpha hemolytic organism 05/23/21 20:40 Blood Culture (Wb) - Arm Left Blood Culture - Preliminary No growth in 48 hours. 05/23/21 20:30 Blood Culture (Wb) - Anticubital Left Blood Culture - Preliminary No growth in 48 hours. 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
[2021-05-27] MEDS: Losartan Potassium 100 MG Tablet PO (10:16)
[2021-05-27] MEDS: Atorvastatin Calcium 20 MG Tablet PO (10:16)
[2021-05-27] MEDS: guaiFENesin 1,200 MG Tablet 1200 MG PO (10:17)
[2021-05-27] MEDS: Atenolol 25 MG Tablet PO (10:17)
[2021-05-27] MEDS: Gabapentin 300 MG Capsule PO (10:17)
[2021-05-27] MEDS: Calcium Carb/Vitamin D 1 TABLET Tablet PO (10:17)
[2021-05-27] MEDS: Pantoprazole Sodium 20 MG Tablet PO (10:18)
[2021-05-27 10:20] VITALS: BP 140/84; PULSE 60; RESP 18; TEMP 36.6; O2SAT 95
[2021-05-27 10:28] VITALS: RESP 18; O2SAT 96
--- NOTE | 2021-05-27 11:25 | PCM.DC.SUM ---
Providers Date of Admission: 05/23/21 Primary Care Physician: Dr. Melanie Gupta MD Consultations 05/27/21 07:22 Consult: Nephrology Routine Consulting Provider: Jimenez Chau Reason for Consult: persistent hyponatremia EMERGENT Consult: No MD Notified: Yes Date Notified: 05/26/21 Time Notified: 07:22 Method of Notification: Verbal Reason For Visit: BILATERAL PNEUMONIA Diagnosis Discharge Diagnosis (1) Hyponatremia: Status: Acute Code(s): E87.1 - Hypo-osmolality and hyponatremia Medications at Discharge Home Medications atenolol 25 mg tablet 25 mg PO DAILY 90 Days #90 tab 10/28/18 omeprazole 20 mg capsule,delayed release 20 mg PO DAILY 90 Days #180 cap 10/28/18 atorvastatin 20 mg tablet 20 mg PO DAILY #90 tab 01/06/19 gabapentin 300 mg capsule 300 mg PO DAILY #60 cap 01/06/19 calcium carbonate-vitamin D3 1 ea PO DAILY 01/17/19 losartan 100 mg PO DAILY 01/17/19 gabapentin 600 mg PO QHS 05/23/21 hydrocodone-acetaminophen 1 tab PO QHS 05/23/21 levofloxacin 750 mg PO DAILY #3 tab 05/27/21 prednisone 40 mg PO DAILY #10 tab 05/27/21 Hospital Course Operations None Procedures None Summary of Care Provided Minutes Spent on Discharge: 45 Hospital Course: Patient is a 75-year-old female with a past medical history of hypertension hyperlipidemia as well as chronic nicotine dependence was admitted to the ED on 05/23/2021 with a complaint of shortness of breath and cough for 8 days which had gradually worsened. Patient was a longtime smoker and had been smoking cough was productive of clear sputum. Covid test done was negative. CTA was negative for PE but showed bilateral pneumonia. Three-quarter pack of cigarettes since her teenage years. She denied any fever but had chills and shortness of breath and cough. Chest x-ray and CT done were negative for PE but showed bilateral pneumonia. She was admitted and managed for probable COPD exacerbation and bilateral pneumonia. Labs done was significant for hyponatremia. She was started on IV ceftriaxone and azithromycin. Hydrochlorothiazide was also held. She was hydrated with IV fluids. She was counseled about quitting smoking. Shortness of breath currently improved and resolved. She was also given IV Solu-Medrol. Hospital course was complicated by refractory hypokalemia for which nephrology was consulted. Nephrology advised fluid restriction to 1500 cc daily and to stay off of hydrochlorothiazide. His sodium level improved to 130. She remained stable and was discharged home on 05/27/2021. She was discharged on p.o. Levaquin for 3 days to complete a 7-day course. She was also discharged on p.o. prednisone 40 mg daily for 5 days and was counseled to quit smoking. Her hydrochlorothiazide was discontinued and she was counseled on fluid restriction to 1200 cc daily. She is follow-up with her primary care doctor and was also referred to pulmonology to be screened with PFTs for formal COPD diagnosis. Patient seen and examined prior to discharge. She had no complaints and felt much better. Review of systems otherwise negative. Labs and vitals reviewed. Home medication reviewed and reconciled. Physical Exam Const alert, oriented x3 and no apparent distress General Appearance: cooperative Orientation / Consciousness: awake and oriented to person Exam Limitations: no limitations HEENT normocephalic, head/scalp atraumatic and moist oral mucous membranes Eyes PERRL, EOMs intact bilaterally and conjunctivae normal Neck no lymphadenopathy Resp normal respiratory effort, no retractions, no use of accessory muscles and clear to auscultation bilaterally Resp Narrative: on room air. Cardio regular rate, regular rhythm, S1 normal heart sound, S2 normal heart sound and no murmurs GI normal to inspection, nondistended, normoactive bowel sounds, soft to palpation, non-tender and non-distended Extremity normal to inspection, full ROM and no clubbing, cyanosis or edema Skin no rashes or lesions noted Neuro oriented x3, CN's II-XII intact bilaterally and moves all extremities Sensorium / Orientation: awake and alert Psych affect normal Weight / BMI Weight Weight: 150 lb 5.684 oz Body Mass Index (BMI) 25.8 ABG / Lab / Microbiology Data Result Diagrams: 05/27/21 05:05 05/27/21 05:05 Laboratory: Laboratory Results - last 24 hr 05/27/21 05:05: WBC 13.8 H, RBC 4.52, Hgb 12.9, Hct 38.0, MCV 84.1, MCH 28.5, MCHC 33.9, RDW Std Deviation 40.1, RDW Coeff of Bela 13.1, Plt Count 293, MPV 11.0, Immature Gran % (Auto) 5.000 H, Neut % (Auto) 78.1 H, Lymph % (Auto) 10.6 L, [place] % (Auto) 5.9, Eos % (Auto) 0.1, Baso % (Auto) 0.3, Absolute Neuts (auto) 10.8 H, Absolute Lymphs (auto) 1.46, Nucleated RBC % 0 05/27/21 05:05: Sodium 130 L, Potassium 4.4, Chloride 98, Carbon Dioxide 25.0, Anion Gap 7, BUN 24 H, Creatinine 0.76, Estim Creat Clear Calc 42.62, Est GFR (MDRD) Af Amer 96, Est GFR (MDRD) Non-Af 79, BUN/Creatinine Ratio 31.7 H, Glucose 133 H, Calcium 8.8 Microbiology: Microbiology 05/24/21 20:05 Sputum, Expectorated/Coughed Gram Stain - Final 05/24/21 20:05 Sputum, Expectorated/Coughed Respiratory Culture - Final Presumptive C albicans Strep not Strep pneumo 05/23/21 20:40 Blood Culture (Wb) - Arm Left Blood Culture - Preliminary No growth in 48 hours. 05/23/21 20:30 Blood Culture (Wb) - Anticubital Left Blood Culture - Preliminary No growth in 48 hours. 05/23/21 20:07 Mucosa - Nose Respiratory Panel (PCR) - Final 05/23/21 22:13 Urine, Clean Catch Streptococcus pneumoniae Antigen (M - Final 05/23/21 22:13 Urine, Clean Catch Legionella Antigen - Final 05/23/21 14:16 Nasal Secretion SARS-CoV-2 Antigen (Rapid) - Final D/C Instructions Discharge Diet: Low fat / Low cholesterol and 8 Cup Fluid Restriction Weight Bearing Status: Weight bearing as tolerated Call your doctor if you observe: Fever of 101 or Higher, Shortness of breath, Dizziness, Swelling in the ankles and Chest pain Meaningful Use Info Meaningful Use Diagnoses (Choose all that apply): None applicable Discharge Plan Admission Admit Date/Time: 05/23/21 19:13 Primary Reason for Your Visit: community acquired pneumonia, probable COPD exacerbation Attending Provider: Uma Fierro Primary Care Provider: Melanie Gupta Consulting Providers: Jimenez Chau Instructions Patient Instructions: ED Pneumonia (Child) Discharge Orders/Prescriptions Prescriptions: New prednisone 20 mg tablet 40 mg PO DAILY Qty: 10 RF: 0 levofloxacin 750 mg tablet 750 mg PO DAILY Qty: 3 RF: 0 Continued atenolol 25 mg tablet 25 mg PO DAILY 90 Days Qty: 90 RF: 0 omeprazole 20 mg capsule,delayed release(DR/EC) 20 mg PO DAILY 90 Days Qty: 180 RF: 0 atorvastatin 20 mg tablet 20 mg PO DAILY Qty: 90 RF: 0 gabapentin 300 mg capsule 300 mg PO DAILY Qty: 60 RF: 0 calcium carbonate-vitamin D3 1 EACH tablet 1 ea PO DAILY RF: 0 losartan 100 MG tablet 100 mg PO DAILY RF: 0 hydrocodone-acetaminophen 5-325 mg tablet 1 tab PO QHS RF: 0 gabapentin 300 mg capsule 600 mg PO QHS RF: 0 Discontinued hydrochlorothiazide 25 MG tablet 25 mg PO DAILY RF: 0 Referrals / Follow Up: Micah Grace DO [STAFF PHYSICIAN] - Within 1 Month (for evaluation for probable COPD) Melanie Gupta MD [Primary Care Provider] - Within 2 Weeks Disposition Disposition (needs filled in before D/C Order can be placed): Home, Self Care Charges/Coding Visit Charges Inpatient E&M: 19703 Disch Hosp
--- NOTE | 2021-05-27 12:17 | CASEMGMT ---
SILVIA CM in to pt room, pt states she is ready to go home. She feels safe to go home and denies any needs.
== END 2021-05-27 13:49 | disposition home or self-care (01) | DRG 194 ==
LOC: ED 18:01 → MS3 18:05
PROVIDERS: Admitting Provider Internal Medicine; Emergency Provider Student in an Organized Health Care Education/Training Program; PCP Internal Medicine; Visit Provider Student in an Organized Health Care Education/Training Program
DX: J18.9 Pneumonia, unspecified organism (principal); J44.1 Chronic obstructive pulmonary disease with (acute) exacerbation; E22.2 Syndrome of inappropriate secretion of antidiuretic hormone; J44.0 Chronic obstructive pulmonary disease with (acute) lower respiratory infection; I10 Essential (primary) hypertension; E78.5 Hyperlipidemia, unspecified; F17.210 Nicotine dependence, cigarettes, uncomplicated; E87.6 Hypokalemia; K21.9 Gastro-esophageal reflux disease without esophagitis; Z66 Do not resuscitate; T50.2X5A Adverse effect of carbonic-anhydrase inhibitors, benzothiadiazides and other diuretics, initial encounter
CPT/HCPCS: 36415; 71045; 71275; 80048; 80053; 83735; 83930; 83935; 84100; 84145; 84300; 84484; 85025; 85379; 87040; 87070; 87205; 87426; 87449; 87633; 87635; 87641; 93005; 94640; 99251; 99284; 99406; J7030; J7040; Q9967; U0005; A4216; G0463; J0696; U0003

== ENCOUNTER 2021-07-10 08:14 | Emergency (ER) | payer MEDICARE, MEDICAID, SELFPAY ==
[2021-07-10] VITALS (9 sets, daily range): BP systolic 132–175; BP diastolic 59–96; PULSE 79–88; RESP 16–20; TEMP 36.9–37.2; O2SAT 91–97; BMI 27.1
--- NOTE | 2021-07-10 08:37 | EDS_ITS ---
HPI History of Present Illness Chief Complaint: Shortness of Breath Informant: patient Onset/Context/Timing Onset: Days Context: gradual Timing: Continuous Worsened by: - (Sitting) Relieved by: Nothing Associated Symptoms cough and white sputum Chest Pain: Positive for None Narrative Narrative: Patient presents with shortness of breath that has been getting worse over the past few days. Patient states it is gradually getting worse. Patient states she feels like she cannot catch her breath. Patient states it is worse with sitting up. Patient states nothing makes it better. Patient admits to a cough with some white sputum. Patient also admits to some rhinorrhea and subjective chills. Patient denies any chest pain. Patient denies any nausea or vomiting. [facility] Medical History HTN (hypertension) Hyperlipemia Hyponatremia Home Medications atenolol 25 mg tablet 25 mg PO DAILY 90 Days #90 tab 10/28/18 [History Last Taken 05/23/21] omeprazole 20 mg capsule,delayed release 20 mg PO DAILY 90 Days #180 cap 10/28/18 [History Last Taken 05/23/21] atorvastatin 20 mg tablet 20 mg PO DAILY #90 tab 01/06/19 [History Last Taken 05/23/21] gabapentin 300 mg capsule 300 mg PO DAILY #60 cap 01/06/19 [History Last Taken 05/23/21] calcium carbonate-vitamin D3 1 ea PO DAILY 01/17/19 [History Last Taken 05/23/21] losartan 100 mg PO DAILY 01/17/19 [History Last Taken 05/23/21] gabapentin 600 mg PO QHS 05/23/21 [History Last Taken 05/22/21] hydrocodone-acetaminophen 1 tab PO QHS 05/23/21 [History Last Taken 05/22/21] Allergy/AdvReac Type Severity Reaction Status Date / Time No Known Allergies Allergy Verified 07/10/21 08:17 Surgical History no surgical history no surgical history Social History Smoking Status: Current every day smoker tobacco type: cigarettes ROS ROS ED Constitutional Constitutional ED: Reports chills; Denies fever(s) Eyes Eyes: Denies blurry vision or change in vision ENT ENT ED: Reports rhinorrhea; Denies sore throat Cardiovascular Cardiovascular: Denies chest pain or palpitations Respiratory/Chest Respiratory/Chest: Reports cough and dyspnea Gastrointestinal Gastrointestinal: Denies nausea or vomiting Genitourinary Genitourinary ED: Denies dysuria or hematuria Musculoskeletal Musculoskeletal: Reports back pain; Denies neck pain Integumentary Denies abscess or rash Neurologic Neurologic: Denies headache(s) or weakness Allergic/Immunologic Allergic/Immunologic ED: Denies mouth swelling or urticaria EXAM Physical Exam Const Vital Signs: 07/10/21 08:15 07/10/21 08:17 07/10/21 08:40 Temperature 98.6 F 98.6 F Temperature Source Temporal Temporal Pulse Rate 88 88 Respiratory Rate 18 18 Respiratory Effort Non-Labored Short of Breath Respiratory Depth Normal Blood Pressure 153/96 H 153/96 H Blood Pressure Mean 115 115 Pulse Ox 95 95 Oxygen Delivery Method Room Air Room Air Room Air Oxygen Flow Rate (L/min) 07/10/21 08:43 07/10/21 10:21 07/10/21 11:34 Temperature 98.9 F 98.9 F Temperature Source Temporal Temporal Pulse Rate 86 88 Respiratory Rate 20 H 16 Respiratory Effort Respiratory Depth Blood Pressure 132/72 H 147/72 H Blood Pressure Mean 92 97 Pulse Ox 92 94 97 Oxygen Delivery Method Room Air Room Air Room Air Oxygen Flow Rate (L/min) 07/10/21 12:00 07/10/21 13:00 Temperature 98.9 F 98.9 F Temperature Source Temporal Temporal Pulse Rate 83 79 Respiratory Rate 18 18 Respiratory Effort Respiratory Depth Blood Pressure 165/78 H 175/74 H Blood Pressure Mean 107 107 Pulse Ox 97 97 Oxygen Delivery Method Nasal Cannula Nasal Cannula Oxygen Flow Rate (L/min) 2 2 Positive well nourished and well developed General Appearance ED: well developed HEENT Reports moist mucous membranes Neck supple and no JVD Resp normal respiratory effort and clear to auscultation bilaterally Cardio regular rate, regular rhythm and no murmurs GI normal to inspection, nondistended, normoactive bowel sounds and non-tender Palpation: soft Extremity normal to inspection General Extremety ED: Negative for edema or tenderness General Extremity: Negative for edema Neuro oriented x3, CN's II-XII intact bilaterally and no sensory deficits noted Sensorium / Orientation: alert Motor Exam: strength 5/5 throughout Psych mental status grossly normal Skin no rashes or lesions noted MDM MDM MDM Narrative Medical decision making narrative: Patient was given 4 puffs of albuterol inhaler here. CBC shows a white blood cell count of 2.2. Comprehensive metabolic profile was within normal limits. Lactate was normal. Portable 1 view chest x-ray was obtained. On my interpretation, lung hastings are clear. There is normal cardiac silhouette. Bony thorax is normal. There is no acute process noted. Radiologist also interpreted the x-ray and agrees. COVID-19 rapid antigen was obtained and was positive. Patient was advised of her findings. Patient was instructed to continue to monitor her oxygen level. Patient was instructed to follow-up with her primary care physician in 3 to 5 days. Patient was given referral for monoclonal antibody infusion. Patient understands and is agreeable with the plan. All questions were answered. The following information was communicated to the patient or caregiver: Monoclonal antibody infusion is not an FDA approved drug. The FDA has authorized the emergency use of monoclonal antibody therapy. The patient had the option to refuse or accept treatment with monoclonal antibody therapy. The patient was informed that the number of people treated with monoclonal antibody therapy at this time is small. The potential benefits and the potential risks of monoclonal antibody therapy are not fully known. Potential benefits of monoclonal antibody include a reduced risk of progressing to severe COVID-19 infection. Potential risks or side effects of monoclonal antibody therapy include allergic reactions, side effects from injection including brief pain, bleeding, bruising of the skin, soreness, swelling, possible infection at the infusion site. The patient stated understanding of this information communicated and wished to proceed with monoclonal antibody infusion therapy. The patient is appropriate for the Monoclonal Antibody Infusion. The patient states understanding of this information communicated and wishes to proceed with monoclonal antibody infusion therapy. Patient agrees to receive either Balanivimab/Etesvimab or Casirivimab/Imdevimab upon availability. Lab Data Attestation: I reviewed the patient's lab results. Labs: Laboratory Results - last 24 hr 07/10/21 07/10/21 07/10/21 08:50 08:50 10:24 WBC 2.2 L RBC 5.04 Hgb 14.0 Hct 42.1 MCV 83.5 MCH 27.8 MCHC 33.3 RDW Std Deviation 43.0 RDW Coeff of Bela 14.0 Plt Count TNP MPV 11.1 Immature Gran % (Auto) 0.900 Neut % (Auto) 72.4 H Lymph % (Auto) 16.3 L [place] % (Auto) 10.4 H Eos % (Auto) 0.0 Baso % (Auto) 0.0 Absolute Neuts (auto) 1.6 L Absolute Lymphs (auto) 0.36 L Nucleated RBC % 0 Differential Comment SCANNED Diff Path Review May foll Platelet Estimate ADEQUATE Sodium 136 Potassium 3.6 Chloride 101 Carbon Dioxide 26.0 Anion Gap 9 BUN 13 Creatinine 0.88 Estim Creat Clear Calc 48.43 Est GFR (MDRD) Af Amer 80 Est GFR (MDRD) Non-Af 66 BUN/Creatinine Ratio 14.7 Glucose 98 Lactic Acid 0.8 Calcium 8.5 Total Bilirubin 0.40 AST 26 ALT 20 Alkaline Phosphatase 66 Total Protein 7.7 Albumin 3.6 Globulin 4.1 Albumin/Globulin Ratio 0.9 Radiography Chest X-Ray - ED: 1 View, Read by ED Physician, Read by Radiologist and Normal Diagnostic Testing: Clinical Impression(s) from Imaging Studies Chest X-Ray 07/10/21 10:31 IMPRESSION: No active pulmonary disease. Electronically Signed: Horace Choudharycarl, at 10:45 EST Tel , Service support , Discharge Plan Triage Chief Complaint: Shortness of Breath ED Provider: Juan Son Dx/Rx/DC Orders Clinical Impression: COVID-19 Instructions: Coronavirus Disease 2019 (COVID-19): Overview Prescriptions: No Action atenolol 25 mg tablet 25 mg PO DAILY 90 Days Qty: 90 RF: 0 omeprazole 20 mg capsule,delayed release(DR/EC) 20 mg PO DAILY 90 Days Qty: 180 RF: 0 atorvastatin 20 mg tablet 20 mg PO DAILY Qty: 90 RF: 0 gabapentin 300 mg capsule 300 mg PO DAILY Qty: 60 RF: 0 calcium carbonate-vitamin D3 1 EACH tablet 1 ea PO DAILY RF: 0 losartan 100 MG tablet 100 mg PO DAILY RF: 0 hydrocodone-acetaminophen 5-325 mg tablet 1 tab PO QHS RF: 0 gabapentin 300 mg capsule 600 mg PO QHS RF: 0 Stand Alone Forms: Monoclonal Antibody Referral Primary Care Provider: Melanie Gupta Referrals: Melanie Gupta MD [Primary Care Provider] - 3-5 Days Disposition Disposition: Home, Self Care
[2021-07-10 09:42] LABS: Absolute Lymphocyte Count 0.36 X10^3/uL (0.83-4.51); Absolute Neutrophil Count 1.6 X10^3/uL (2.0-7.7); Hematocrit 42.1 % (37-47); Lymphocyte # 0.36 X10^3/ul (0.83-4.51); Lymphocyte % 16.3 % (19-41); Mean Corp Hgb Conc 33.3 g/dL (32-36); Mean Corpuscular Hgb 27.8 pg (27.0-32.0); Mean Corpuscular Volume 83.5 fL (81-99); Mean Platelet Vol. 11.1 fl (6.2-12.0); Monocyte# 0.23 X10^3/uL; Monocyte% 10.4 % (0-10); NRBC Flagged by Analyzer 0 % (0-5); Neutrophil % 72.4 % (47-70); POSITIVE COUNT YES; POSITIVE DIFFERENTIAL YES; POSITIVE MORPHOLOGY YES; Red Blood Count 5.04 M/mm3 (4.2-5.4); White Blood Count 2.2 K/mm3 (4.4-11.0)
[2021-07-10 09:43] LABS: Differential Indicated SCAN CRITERIA MET
[2021-07-10 09:50] LABS: ALB/GLOB Ratio 0.9 RATIO (0.9-2.4); AST(SGOT) 26 U/L (15-37); Alanine Aminotransfer ALT/SGPT 20 U/L (13-56); Albumin, Serum 3.6 g/dL (3.2-5.0); Alkaline Phosphatase 66 U/L (45-117); Anion Gap 9 (5-15); BUN 13 mg/dL (7-18); BUN/Creat Ratio 14.7 RATIO (10-20); Calcium,Total 8.5 mg/dL (8.5-10.1); Chloride 101 mmol/L (98-107); Creatinine, Serum 0.88 mg/dL (0.55-1.02); EST Glomerular Filtration Rate 66 mL/min (>60); Est Glom Filt Rate - Afr Amer 80 mL/min (>60); Estimated Creatinine Clearance 48.43 ml/min; Globulin 4.1 g/dL (2.2-4.2); Glucose 98 mg/dL (74-106); Potassium 3.6 mmol/L (3.5-5.1); Protein, Total 7.7 g/dL (6.4-8.2); Sodium Level 136 mmol/L (136-145)
[2021-07-10 10:12] LABS: Differential Comment SCANNED; Platelet Estimate ADEQUATE (ADEQ)
--- NOTE | 2021-07-10 10:31 | RAD_ITS ---
STUDY: X-RAY CHEST REASON FOR EXAM: Female, 75 years old. Cough. TECHNIQUE: Single AP portable view of the chest. COMPARISON: 05/23/2021. FINDINGS: Calcified granulomas in the right upper lobe. No focal infiltrate is seen. There is no demonstrated pleural abnormality. Normal size heart. Normal mediastinum and melinda. Normal visualized pulmonary arteries. There is atherosclerotic calcification of the aortic arch with tortuosity. Unchanged osseous structures. There is no demonstrated abnormality of the visualized soft tissue structures of the upper abdomen. RAD/Chest 1 View (Portable) IMPRESSION: No active pulmonary disease. Electronically Signed: Horace Macedo, at 10:45 EST Tel , Service support ,
[2021-07-10 10:57] LABS: Lactic Acid 0.8 mmol/L (0.4-1.9)
[2021-07-11 13:58] LABS: Pathologist Review Reviewed
== END 2021-07-10 13:37 | disposition home or self-care (01) ==
PROVIDERS: Emergency Provider Emergency Medicine; PCP Internal Medicine; Visit Provider Emergency Medicine
DX: U07.1 COVID-19 (principal); F17.210 Nicotine dependence, cigarettes, uncomplicated; I10 Essential (primary) hypertension; E78.5 Hyperlipidemia, unspecified; Z79.899 Other long term (current) drug therapy
CPT/HCPCS: 71045; 80053; 83605; 85025; 87426; 94640; 99283; A4216

== ENCOUNTER 2021-07-11 11:06 | Outpatient (CLI) | payer MEDICARE, MEDICAID, SELFPAY ==
[2021-07-11 11:02] VITALS: BP 115/77; PULSE 84; RESP 20; TEMP 36.8; O2SAT 95; BMI 25.7
[2021-07-11] MEDS: 0.9% Saline Lock 10 ML Syringe IV (11:20)
[2021-07-11 12:05] VITALS: BP 102/69; PULSE 78; RESP 16; TEMP 37.2; O2SAT 100
[2021-07-11 12:50] VITALS: BP 111/77; PULSE 78; RESP 20; TEMP 36.9; O2SAT 96
== END 2021-07-11 23:59 | disposition home or self-care (01) ==
LOC: MS3OUT 11:07 → MS3 11:07
PROVIDERS: PCP Internal Medicine; Referring Provider Emergency Medicine; Visit Provider Emergency Medicine
DX: Z23 Encounter for immunization (principal); U07.1 COVID-19
CPT/HCPCS: J7050; M0243; A4216; Q0244